=== PATIENT | female | born 1930 | race Caucasian/White ===

== ENCOUNTER → 2016-07-08 | Outpatient (CLI) | payer OTHER ==
[~2016-07-08] MED LIST: ACET-1175 PO; ALLO100T PO; ATOR10TA88 PO; AZIT250T PO; AZIT500T26 PO; BISA10SU5 PR; BUDE0.5S INH; CARB25TA12 PO; CLC100 PO; CYCL0.052 OP; DEXT40GE PO; DICL1GEL12 TOP; ERTA1INJ IV; ERYOPO OPB; ESTCR PV; FLUT0.15 NEB; FORM1NEB PO; FRRS300 PO; GABA-112 PO; GABA-113 PO; GFNSR600 PO; GLGKIT IM; HYDR5SYP11 PO; IPRASOL4 INH; LCTXP PO; LPR25 PO; MAGN400T6 PO; MEGE40SU PO; MELATAB2 PO; MOML PO; MULT-506 PO; NF406 PO; OSEL30CA PO; OXYC-57 PO; PRD10 PO; ROPI3TAB PO; SENN-65 PO; SODIENE PR; TRAM-10 PO; UMEC1INH PO; VITBC PO; XRL15 PO
[2016-07-08 09:31] LABS: ESTIMATED AVERAGE GLUCOSE 103 mg/dl; HA1C FLAG Normal (Normal)
== END ==
LOC: C.LABUPUNI 08:13
PROVIDERS: ATTEND Family Medicine
DX: E11.641 Type 2 diabetes mellitus with hypoglycemia with coma (principal)

== ENCOUNTER → 2016-07-15 | Outpatient (CLI) | payer OTHER ==
[2016-07-15 08:40] LABS: BASO % 0.2 %; BASO ABS # 0.01 K/uL (0-0.2); COMPLETE YES; EOS % 1.6 %; HEMATOCRIT 34.4 % (37-47); IG% 0.2 %; LYMPH % 21.6 %; LYMPH ABS # 0.96 K/uL (1.2-3.4); MEAN CELL VOLUME 97.5 fL (80-100); MEAN CORPUSCULAR HEMOGLOBIN 29.7 pg (25-34); MEAN CORPUSCULAR HGB CONC 30.5 g/dl (32-36); MEAN PLATELET VOLUME 11.2 fL (7.4-10.4); MONO % 8.8 %; NEUT % 67.6 %; PLATELET COUNT 183 K/uL (130-400); RED BLOOD COUNT 3.53 M/uL (4.2-5.4); WHITE BLOOD COUNT 4.45 K/uL (4.8-10.8)
[2016-07-15 08:48] LABS: BLOOD UREA NITROGEN 28 mg/dl (7-18); BUN/CREATININE RATIO 25.6 (10-20); C-REACTIVE PROTEIN 6.11 mg/dl (0-0.29); CALCIUM 8.6 mg/dl (8.5-10.1); CARBON DIOXIDE 30 mmol/L (21-32); CHLORIDE 110 mmol/L (98-107); GLUCOSE 93 mg/dl (70-99); SODIUM 149 mmol/L (136-145)
== END ==
LOC: C.LABUPUNI 08:12
PROVIDERS: ATTEND Family Medicine
DX: E11.641 Type 2 diabetes mellitus with hypoglycemia with coma (principal); L10.9 Pemphigus, unspecified

== ENCOUNTER 2016-07-17 14:05 | Inpatient (IN) | payer OTHER ==
[~2016-07-17] VITALS: Ht 165.1 cm; Wt 83.6 kg
[~2016-07-17 14:05] MED LIST changes: -AZIT250T PO; -AZIT500T26 PO; -DEXT40GE PO; -ERTA1INJ IV; -ERYOPO OPB; -ESTCR PV; -FLUT0.15 NEB; -GLGKIT IM; -HYDR5SYP11 PO; -LCTXP PO; -MEGE40SU PO; -OSEL30CA PO; -PRD10 PO; -SENN-65 PO
[2016-07-17] MEDS ORDERED: SODIUM CHLORIDE 0.9% 1000ML 1,000 ML IV SCH (14:14)
--- NOTE | 2016-07-17 14:20 | EMERGENCY ROOM VISIT NOTE ---
History Report prepared by Mata: Devi Salinas Under the Supervision of: Dr. Julio Cesar Ramirez D.O. First contact with patient: 13:57 Stated Complaint: STROKE SYMPTOMS History of Present Illness The patient is a 85 year old female who presents to the Emergency Room with complaints constant altered mental status beginning 3 hours ago. Per the [place] [facility] staff at [facility] the patient was eating breakfast 3 hours ago and when they checked on her she seemed to be having trouble breathing and was unresponsive. They report that at baseline the patient is able to care for herself, walk, and converse. Per the report, the patient had Xarelto last night but not today. EMS reports that she seems like she is unable to look to the right and is not answering questions. HPI limited secondary to AMS. Source of History: nursing staff History Limited By: AMS Onset: 3 hours ago Position: other (global) Quality: other (AMS) Timing: constant Note: Has trouble breathing, unable to look to the right, not answering questions, SOB. Review of Systems See HPI for pertinent positives & negatives. ROS limited secondary to AMS. Past Medical & Surgical Medical Problems: (1) Acute and chronic respiratory failure (2) Acute dyspnea (3) Altered mental status (4) Altered mental status (5) Anemia (6) BODY MASS INDEX 40.0-44.9, ADULT (7) C. difficile colitis (8) Change in mental status (9) Change in mental status (10) CONGESTIVE HEART FAILURE NOS (11) CORONARY ATHEROSCLEROSIS OF [place] CORONARY VESSEL (12) Cough (13) Dehydration (14) DIAB BRIGITTE WO COMPL, TYPE II OR UNSPEC TYPE, NOT UNCNTRLD (15) Dysuria (16) Fever (17) Negative history for ulcers (18) OBESITY HYPOVENTILATION SYNDROME (19) Parkinson's disease (20) Pneumonia (21) PNEUMONIA, ORGANISM NOS (22) Respiratory acidosis (23) Respiratory failure (24) Sepsis (25) Sepsis (26) Severe anemia (27) TIA (transient ischemic attack) (28) UTI (urinary tract infection) (29) UTI (urinary tract infection) Family History No pertinent family history stated. Social History Drug Use: none Marital Status: Housing Status: [place] [facility]) Occupation Status: retired Current/Historical Medications Scheduled Allopurinol (Zyloprim), 100 MG PO Q12 Atorvastatin (Lipitor), 10 MG PO HS Azithromycin (Zithromax), 250 MG PO DAILY Azithromycin (Zithromax), 500 MG PO DAILY Budesonide Soln (Pulmicort Respules 0.5MG/2ML), 2 ML INH Q12 Carbidopa/Levodopa (Sinemet 25MG/100MG), 1 TAB PO HS Cyclosporine (Ophth) (Restasis), 2 DROP OP BID Docusate Sodium (Docusate Sodium), 100 MG PO BID Erythromycin Opth (Erythromycin Opth), 1 APPLN OPB HS Estradiol Vaginal (Estrace), 0.5 APPL PV 3XWK Ferrous Sulfate (Ferrous Sulfate), 325 MG PO BIDM Fluticasone Propionate (Nasal) (Flonase Allergy Relief), 1 SPRAY NEB DAILY Gabapentin (Neurontin), 100 MG PO DAILY Gabapentin (Neurontin), 300 MG PO BID Ipratropium-Albuterol (Duoneb), 1 TREATMENT INH Q4H Magnesium Oxide (Mag-Ox), 400 MG PO TID Megestrol Acetate (Megace Oral), 400 MG PO BID Melatonin (Melatonin Maximum Strengt), 5 MG PO HS Metoprolol Tartrate (Lopressor), 12.5 MG PO DAILY Multivitamin (Multivitamin), 1 TAB PO DAILY Prednisone (Prednisone), 10 MG PO DAILY Rivaroxaban (Xarelto), 15 MG PO HS Ropinirole (Requip), 3 MG PO TID Tramadol (Ultram), 50 MG PO Q6 Umeclidinium [place] (Incruse Ellipta), 1 PUFF PO DAILY Vitamin B Complex (Vitamin B Complex), 1 TAB PO DAILY Scheduled PRN Acetaminophen (Tylenol), 650 MG PO Q4H PRN for Pain or Fever Bisacodyl (Bisacodyl), 1 SUPP WV UD PRN for Constipation Dextrose (Diabetic Use) (Insta-Glucose), 1 APPL PO UD PRN for HYPOGLYCEMIA PROTOCOL Diclofenac Sodium (Topical) (Voltaren 1% Top Gel), 1 DOSE TOP TID PRN for Pain Glucagon (Glucagon Emergency Kit), 1 APPLN IM UD PRN for HYPOGLYCEMIA PROTOCOL Guaifenesin Ext Rel (Mucinex Ext Rel), 600 MG PO Q12 PRN for COPD Hydrocodone W/ Homatropine (Hycodan 5/1.5MG 5 Ml), 5 ML PO Q4H PRN for Cough Oxycodone/Acetaminophen 5MG/325MG (Percocet 5MG/325MG), 1 TABLET PO Q12 PRN for Pain Sodium Phosphate/Biphosphate (Fleet Enema), 1 EA WV UD PRN for NO BM 4HR AFTER SUPPOSITORY Miscellaneous Medications Magnesium Hydroxide (Milk Of Magnesia), 30 ML PO Allergies Coded Allergies: Penicillins (Verified Allergy, Unknown, Unknown rxn; PATIENT HAS TOLERATED KEFLEX AND ROCEPHIN, 07/17/16) HAS TOLERATED KEFLEX AND ROCEPHIN IN PAST Lisinopril (Verified Adverse Reaction, Intermediate, HALLUCINATIONS, ) Physical Exam Vital Signs Date Time Temp Pulse Resp B/P Pulse Ox O2 Delivery O2 Flow Rate FiO2 07/17/16 15:59 192/109 07/17/16 15:55 65 93 07/17/16 15:50 65 94 07/17/16 15:45 67 94 07/17/16 15:40 67 91 07/17/16 15:35 67 89 07/17/16 15:30 68 89 07/17/16 15:25 69 91 07/17/16 15:23 171/85 07/17/16 15:20 67 90 07/17/16 15:19 67 16 171/85 91 Nasal Cannula 4.0 07/17/16 15:15 67 91 07/17/16 15:10 68 197/100 91 Nasal Cannula 4.0 07/17/16 15:05 68 90 07/17/16 15:00 67 96 07/17/16 14:55 68 99 07/17/16 14:50 67 100 07/17/16 14:45 68 100 07/17/16 14:40 69 100 07/17/16 14:38 71 26 212/80 100 Non-Rebreather 12.0 07/17/16 14:36 212/80 07/17/16 14:35 72 100 07/17/16 14:21 199/100 07/17/16 14:20 72 100 07/17/16 14:18 100 Non-Rebreather 15.0 07/17/16 14:15 73 100 07/17/16 14:14 216/83 07/17/16 14:13 37.0 74 24 167/118 97 Non-Rebreather 15.0 Physical Exam GENERAL: Patient is awake to verbal commands but appears to not be able to follow commands. She does not answer questions. She has a rebreather mask in place and appears to be having significant difficulty breathing. EYES: The conjunctivae are clear. The pupils are round and reactive. The patient appears to be unable to look to the right. EARS, NOSE, MOUTH AND THROAT: The nose is without any evidence of any deformity. Mucous membranes are moist tongue is midline NECK: The neck is nontender and supple. RESPIRATORY: Tachypnea with diminished breath sounds are noted throughout. There are Rales noted in all lung trotter. Patient appears to be having significant respiratory distress at this time. CARDIOVASCULAR: Regular rate and rhythm noted there no murmurs rubs or gallops normal S1 normal S2 GASTROINTESTINAL: The abdomen is soft. Bowel sounds are present in all quadrants. Abdomen is nontender MUSCULOSKELETAL/EXTREMITIES: There is no evidence of gross deformity full range of motion is noted in the hips and shoulders SKIN: There is no obvious evidence of any rash. Pedal edema was noted bilaterally. NEUROLOGIC: Patient is unable to answer questions. I'm unable to assess orientation at this time. The patient appears to have facial droop at rest. The patient appears to be unable to lift her left arm. It appears flaccid and drops to the bed. Patient does not appear to be able to follow commands and I'm unable to assess her lower extremity strength at this time. Patient is unable to answer questions. Medical Decision & Procedures ER Provider Diagnostic Interpretation: X ray results and stated below per my interpretation and radiology interpretation. Other radiology results per my review and radiologist interpretation: SINGLE VIEW CHEST FINDINGS: An AP, portable, upright chest radiograph is compared to study dated 06/28/2016. The examination is degraded by portable technique, patient rotation, and by the patient's head obscuring the left apex. The cardiomediastinal silhouette is unremarkable. The heart is enlarged and there is atherosclerotic calcification of the thoracic aorta. There is evidence of congestive failure and mild interstitial edema. There are low lung volumes. Small pleural effusions are identified and there is bibasilar atelectasis. No pneumothorax is seen. The skeletal structures are osteopenic. The bony thorax is grossly intact. IMPRESSION: 1. Cardiomegaly with evidence of congestive failure and mild interstitial edema. 2. Low lung volumes and small pleural effusions. Electronically signed by: Alfredo Poe M.D. 07/17/2016 2:55 PM Dictated Date/Time: 07/17/2016 2:[address] SCAN OF THE BRAIN WITHOUT IV CONTRAST FINDINGS: Brain parenchyma: There are age-related involutional changes noting moderate to advanced subcortical and periventricular microangiopathic change. There is no hemorrhage, mass effect, or evidence of acute territorial ischemia by CT criteria. Garcia-white matter is preserved. No extra-axial fluid collection is seen. Ventricles, sulci, cisterns: Prominent secondary to involutional change. Intracranial vasculature: There is atherosclerotic calcification of the cavernous carotid and vertebral arteries. Calvarium: Unremarkable. Sinuses and mastoids: There is subtotal opacification of the paranasal sinuses. Air-fluid levels are present within the maxillary antra. There are small bilateral mastoid effusions, right larger than left. Orbits: The bony orbits are grossly intact. There are bilateral ocular lens implants. IMPRESSION: 1. Senescent changes as above with no hemorrhage, mass effect, or evidence of acute territorial ischemia by CT criteria. 2. Paranasal sinus disease as above. Electronically signed by: Alfredo Poe M.D. 07/17/2016 2:36 PM Dictated Date/Time: 07/17/2016 2:34 PM Laboratory Results 07/17/16 14:25 Red Blood Count 3.69, Mean Corpuscular Volume 96.5, Mean Corpuscular Hemoglobin 29.3, Mean Corpuscular Hemoglobin Concent 30.3, Mean Platelet Volume 10.5, Neutrophils (%) (Auto) 87.1, Lymphocytes (%) (Auto) 8.4, Monocytes (%) (Auto) 3.6, Eosinophils (%) (Auto) 0.0, Basophils (%) (Auto) 0.3, Neutrophils # (Auto) 6.81, Lymphocytes # (Auto) 0.66, Monocytes # (Auto) 0.28, Eosinophils # (Auto) 0.00, Basophils # (Auto) 0.02 07/17/16 14:25 Test 07/17/16 00:00 07/17/16 14:25 07/17/16 14:27 07/17/16 15:22 Influenza Type A Antigen Neg for Influ A (NEG) Influenza Type B Antigen Neg for Influ B (NEG) White Blood Count 7.82 K/uL (4.8-10.8) Red Blood Count 3.69 M/uL (4.2-5.4) Hemoglobin 10.8 g/dL (12.0-16.0) Hematocrit 35.6 % (37-47) Mean Corpuscular Volume 96.5 fL (80-100) Mean Corpuscular Hemoglobin 29.3 pg (25-34) Mean Corpuscular Hemoglobin Concent 30.3 g/dl (32-36) Platelet Count 194 K/uL (130-400) Mean Platelet Volume 10.5 fL (7.4-10.4) Neutrophils (%) (Auto) 87.1 % Lymphocytes (%) (Auto) 8.4 % Monocytes (%) (Auto) 3.6 % Eosinophils (%) (Auto) 0.0 % Basophils (%) (Auto) 0.3 % Neutrophils # (Auto) 6.81 K/uL (1.4-6.5) Lymphocytes # (Auto) 0.66 K/uL (1.2-3.4) Monocytes # (Auto) 0.28 K/uL (0.11-0.59) Eosinophils # (Auto) 0.00 K/uL (0-0.5) Basophils # (Auto) 0.02 K/uL (0-0.2) RDW Standard Deviation 52.0 fL (36.4-46.3) RDW Coefficient of Variation 14.6 % (11.5-14.5) Immature Granulocyte % (Auto) 0.6 % Immature Granulocyte # (Auto) 0.05 K/uL (0.00-0.02) Prothrombin Time 11.1 SECONDS (9.0-12.0) Prothromb Time International Ratio 1.0 (0.9-1.1) Activated Partial Thromboplast Time 28.4 SECONDS (21.0-31.0) Partial Thromboplastin Ratio 1.1 Estimated GFR () 53.0 Estimated GFR (Non- 45.7 BUN/Creatinine Ratio 20.1 (10-20) Calcium Level 8.3 mg/dl (8.5-10.1) Total Creatine Kinase 51 U/L (26-192) Creatine Kinase MB 2.4 ng/ml (0.5-3.6) Creatine Kinase MB Ratio 4.7 (0-3.0) Troponin I < 0.015 ng/ml (0-0.045) Bedside Hemoglobin 11.2 g/dl (12.0-16.0) Bedside Hematocrit 33 % (37-47) Bedside Sodium 148 mEq/L (135-144) Bedside Potassium 4.2 mEq/L (3.3-5.0) Bedside Chloride 109 mEq/L (101-112) Bedside Total CO2 29 mEq/l (24-31) Anion Gap 15.0 mmol/L (16-25) Bedside Blood Urea Nitrogen 22 mg/dl (7-18) Bedside Creatinine 1.1 mg/dl (0.6-1.3) Bedside Glucose (other) 193 mg/dl (70-99) Bedside Ionized Calcium (Aarti) 1.19 mmol/l (1.12-1.32) Venous Blood pH 7.33 (7.36-7.41) Venous Blood Partial Pressure CO2 57 mmHg (38.0-50.0) Venous Blood Partial Pressure O2 46 mmHg Venous Blood HCO3 29 meq/L Venous Blood Oxygen Saturation 79.1 % Venous Blood Base Excess 2.1 mmol/L Pro-B-Type Natriuretic Peptide 1803 pg/ml (0-1800) Laboratory results per my review. Medications Administered Medications (Trade) Dose Ordered Sig/Jaquelin Route Start Time Stop Time Status Last Admin Dose Admin Sodium Chloride (Nss 1000ml) 1,000 ml @ 50 mls/hr Q20H IV 07/17/16 14:14 07/17/16 18:07 DC 07/17/16 15:29 50 MLS/HR Nitroglycerin (Nitroglycerin 2% Oint) 0.5 inch NOW ONCE EXT 07/17/16 15:45 07/17/16 15:46 DC 07/17/16 16:01 0.5 INCH ECG Indication: other (stroke symptoms) Rate (beats per minute): 75 Rhythm: normal sinus Findings: RBBB, no ectopy Comparison ECG Date: 06/28/16 Change: no significant change ED Course 1407: The patient was evaluated in room B1. A complete history and physical examination were performed. 1414: NSS 1,000 ml @ 50 mls/hr IV. 1446: I discussed the patient's case with Dr. Whitaker. He is going to evaluate the patient. 1513: I spoke to Dr. Whitaker. He does not recommend TPA at this time. Her condition seems to be improving and she is on Xarelto. 1531: I discussed the patient's case with Dr. Tello. The patient will be evaluated for further management. 1545: Nitroglycerin 0.5 inch EXT. 1548: Upon reevaluation, the patient is hemodynamically stable. I discussed results and treatment plan with the patient. She and her family verbalizes agreement and understanding. I spoke with Dr. Tello of the [facility]. The patient will be evaluated for further management and care. Medical Decision Differential diagnosis: Etiologies such as metabolic, infection, hypoglycemia, electrolyte abnormalities , cardiac sources, intracerebral event, toxicologic, neurologic, as well as others were entertained. Nursing notes reviewed. Additional history is obtained from the patient's daughter. Additional history is obtained from the prehospital personnel. The patient is an 85-year-old female who presented to the emergency department from the [place] [facility] for an evaluation of shortness of breath and neurologic findings. The patient was last seen well at 1130 a.m. She was given her medial and when the [place] [facility] staff went to check on her again she was having severe difficulty breathing. She appeared to be in pulmonary edema. I also received a prehospital phone call from the automotive teacher stating they were concerned about a stroke alert. The patient appeared to have facial droop as well as unilateral weakness. She was very obtunded. This could also be secondary to the patient's severe hypoxia that was reported prior to arrival. The patient was made a stroke alert after arrival when I spoke to her daughter stated that she would want TPA if it was an option. The patient last took her anticoagulant last evening at 9 p.m. and because of her age and other comorbidities she may not be a candidate for this but we had her evaluated by the [facility] tele stroke neurologist. At this time they agree that she is not a good candidate for thrombolytics. I discussed the patient's laboratory and radiographic studies with her and her family member. Her symptoms continued to improve while she was in the emergency department. I discussed her case with the on-call [facility] hospitalist group. They've agreed to evaluate the patient in the emergency department for further management and disposition. The patient was treated for her pulmonary edema with nitroglycerin paste. This seemed to improve her blood pressure as well as her other symptoms. Consults Time Called: 1440 Consulting Physician: Dr. Sherman Ramos Neurology Returned Call: 1446 I discussed the patient's case with Dr. Whitaker. He is going to evaluate the patient. Additional Consults: Time Called: 1510 Consulted Physician: Dr. Sherman Ramos Neurology Returned Call: 1513 Additional Comments: I spoke to Dr. Whitaker. He does not recommend TPA at this time. Her condition seems to be improving and she is on Xarelto. Time Called: 1530 Consulted Physician: Dr. Tello - [facility] Returned Call: 1531 Additional Comments: I discussed the patient's case with Dr. Tello. The patient will be evaluated for further management. Impression Primary Impression: CVA (cerebral vascular accident) Additional Impressions: Hypoxia Pulmonary edema Respiratory distress Critical Care I have personally spent greater than 45 minutes of critical care time in the direct management of this patient. This includes bedside care, interpretation of diagnostic studies, and testing, discussion with consultants, patient, and family members, and other required patient management activities. This 45 minutes is in excess of all separately billable procedures. Scribe Attestation The scribe's documentation has been prepared under my direction and personally reviewed by me in its entirety. I confirm that the note above accurately reflects all work, treatment, procedures, and medical decision making performed by me. Departure Information Dispostion Being Evaluated By Hospitalist Problem Qualifiers
--- NOTE | 2016-07-17 14:38 | DIAGNOSTIC IMAGING REPORT ---
CT SCAN OF THE BRAIN WITHOUT IV CONTRAST CLINICAL HISTORY: Strokelike symptoms. COMPARISON STUDY: CT the brain dated 02/02/2014. TECHNIQUE: Unenhanced axial CT scan of the brain is performed from the vertex to the skull base. The examination is modestly degraded by motion artifact. CT DOSE: 614.27 mGy.cm FINDINGS: Brain parenchyma: There are age-related involutional changes noting moderate to advanced subcortical and periventricular microangiopathic change. There is no hemorrhage, mass effect, or evidence of acute territorial ischemia by CT criteria. Garcia-white matter is preserved. No extra-axial fluid collection is seen. Ventricles, sulci, cisterns: Prominent secondary to involutional change. Intracranial vasculature: There is atherosclerotic calcification of the cavernous carotid and vertebral arteries. Calvarium: Unremarkable. Sinuses and mastoids: There is subtotal opacification of the paranasal sinuses. Air-fluid levels are present within the maxillary antra. There are small bilateral mastoid effusions, right larger than left. Orbits: The bony orbits are grossly intact. There are bilateral ocular lens implants. IMPRESSION: 1. Senescent changes as above with no hemorrhage, mass effect, or evidence of acute territorial ischemia by CT criteria. 2. Paranasal sinus disease as above. Electronically signed by: Alfredo Poe M.D. 07/17/2016 2:36 PM Dictated Date/Time: 07/17/2016 2:34 PM
[2016-07-17 14:39] LABS: BASO % 0.3 %; BASO ABS # 0.02 K/uL (0-0.2); COMPLETE YES; HEMATOCRIT 35.6 % (37-47); IG% 0.6 %; LYMPH % 8.4 %; LYMPH ABS # 0.66 K/uL (1.2-3.4); MEAN CELL VOLUME 96.5 fL (80-100); MEAN CORPUSCULAR HEMOGLOBIN 29.3 pg (25-34); MEAN CORPUSCULAR HGB CONC 30.3 g/dl (32-36); MEAN PLATELET VOLUME 10.5 fL (7.4-10.4); MONO % 3.6 %; NEUT % 87.1 %; PLATELET COUNT 194 K/uL (130-400); RED BLOOD COUNT 3.69 M/uL (4.2-5.4); WHITE BLOOD COUNT 7.82 K/uL (4.8-10.8)
[2016-07-17] MEDS ORDERED: PRD10 PO (14:39)
[2016-07-17] MEDS ORDERED: AZIT250T PO (14:39)
[2016-07-17] MEDS ORDERED: OSEL30CA PO (14:39)
[2016-07-17] MEDS ORDERED: FLUT0.15 NEB (14:39)
[2016-07-17] MEDS ORDERED: MEGE40SU PO (14:41)
[2016-07-17 14:44] LABS: ISTAT CREATININE 1.1 mg/dl (0.6-1.3); ISTAT HEMOGLOBIN 11.2 g/dl (12.0-16.0); ISTAT IONIZED CALCIUM 1.19 mmol/l (1.12-1.32)
[2016-07-17 14:48] LABS: PARTIAL THROMBOPLASTIN RATIO 1.1; PROTHROMBIN TIME (PATIENT) 11.1 SECONDS (9.0-12.0)
[2016-07-17] MEDS ORDERED: GLGKIT IM (14:50)
[2016-07-17] MEDS ORDERED: HYDR5SYP11 PO (14:51)
[2016-07-17 14:55] LABS: BLOOD UREA NITROGEN 22 mg/dl (7-18); BUN/CREATININE RATIO 20.1 (10-20); CALCIUM 8.3 mg/dl (8.5-10.1); CARBON DIOXIDE 29 mmol/L (21-32); CHLORIDE 112 mmol/L (98-107); GLUCOSE 200 mg/dl (70-99); POTASSIUM 4.2 mmol/L (3.5-5.1); SODIUM 149 mmol/L (136-145)
[2016-07-17] MEDS ORDERED: DEXT40GE PO (14:56)
[2016-07-17] MEDS ORDERED: AZIT500T26 PO (14:56)
--- NOTE | 2016-07-17 14:57 | DIAGNOSTIC IMAGING REPORT ---
SINGLE VIEW CHEST CLINICAL HISTORY: Strokelike symptoms. FINDINGS: An AP, portable, upright chest radiograph is compared to study dated 06/28/2016. The examination is degraded by portable technique, patient rotation, and by the patient's head obscuring the left apex. The cardiomediastinal silhouette is unremarkable. The heart is enlarged and there is atherosclerotic calcification of the thoracic aorta. There is evidence of congestive failure and mild interstitial edema. There are low lung volumes. Small pleural effusions are identified and there is bibasilar atelectasis. No pneumothorax is seen. The skeletal structures are osteopenic. The bony thorax is grossly intact. IMPRESSION: 1. Cardiomegaly with evidence of congestive failure and mild interstitial edema. 2. Low lung volumes and small pleural effusions. Electronically signed by: Alfredo Poe M.D. 07/17/2016 2:55 PM Dictated Date/Time: 07/17/2016 2:53 PM
[2016-07-17] MEDS ORDERED: ESTCR PV (14:59)
[2016-07-17] MEDS ORDERED: ERYOPO OPB (14:59)
[2016-07-17 15:00] LABS: CKMB/CK RATIO 4.7 (0-3.0)
[2016-07-17 15:33] LABS: VEN BLD GAS O2 SATURATION 79.1 %; VEN BLOOD GAS BASE EXCESS 2.1 mmol/L; VENOUS BLOOD GAS PCO2 57 mmHg (38.0-50.0); VENOUS BLOOD GAS PO2 46 mmHg
[2016-07-17] MEDS ORDERED: NITROGLYCERIN OINT 2% 1GM PACKET EXT ONE (15:45)
[2016-07-17] MEDS ORDERED: ONDANSETRON INJ 2 MG/ML 2 ML VIAL IV PRN (16:00)
[2016-07-17] MEDS ORDERED: ALUMINUM/MAGNESIUM/SIMETH (MAALOX MAX) 30 ML UDC PO PRN (16:00)
[2016-07-17] MEDS ORDERED: ACETAMINOPHEN 325 MG TAB PO PRN ×2 (16:00→16:15)
[2016-07-17] MEDS ORDERED: GLUCOSE 40% GEL 15 GM TUBE PO PRN (16:15)
[2016-07-17] MEDS ORDERED: GLUCOSE 10 TABS/TUBE PO PRN (16:15)
[2016-07-17] MEDS ORDERED: GUAIFENESIN 600 MG TABCR PO PRN (16:15)
[2016-07-17] MEDS ORDERED: GLUCAGON FOR INJ 1 MG VIAL SQ PRN (16:15)
[2016-07-17] MEDS ORDERED: OXYCODONE/ACETAMINOPHEN 5-325 TAB PO PRN (16:15)
[2016-07-17] MEDS ORDERED: DICLOFENAC SOD 1% GEL 100 GM TUBE EXT PRN (16:15)
[2016-07-17] MEDS ORDERED: DEXTROSE 50% 50 ML SYR IV PRN (16:15)
--- NOTE | 2016-07-17 16:26 | History and Physical ---
History & Physical Date & Time of Service: Jul 17, 2016 at 16:10 Chief Complaint: Stroke Symptoms Primary Care Physician: [facility] History of Present Illness Source: patient, family (daughter) Pt is a 85 yo female who presents to ER from [facility] with altered mental status and that started 3 hrs [employer]. Pt is a poor historian due to parkinsons but per staff, pt had difficulty breathing and became hypoxic and wasn't answering questions appropriately. They report that at baseline the patient is able to care for herself, walk, and converse. Upon arrival to ER pt was initially thought to have stroke and there was a slight facial droop noted. Stroke alert was called, and [place] was contacted. No indication for TPA as felt unlikely stroke. CT head was negative and pts alertness and orientation improved on O2. Past Medical/Surgical History Medical Problems: (1) Acute and chronic respiratory failure Status: Resolved (2) Acute dyspnea Status: Resolved (3) Altered mental status Status: Resolved (4) Altered mental status Status: Resolved (5) Anemia Status: Resolved (6) BODY MASS INDEX 40.0-44.9, ADULT Status: Chronic (7) C. 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 (12) Cough Status: Resolved (13) Dehydration Status: Resolved (14) DIAB BRIGITTE WO COMPL, TYPE II OR UNSPEC TYPE, NOT UNCNTRLD Status: Chronic (15) Dysuria Status: Resolved (16) Fever Status: Resolved (17) Negative history for ulcers Status: Chronic (18) OBESITY HYPOVENTILATION SYNDROME Status: Chronic (19) Parkinson's disease Status: Chronic (20) Pneumonia Status: Resolved (21) PNEUMONIA, ORGANISM NOS Status: Resolved (22) Respiratory acidosis Status: Resolved (23) Respiratory failure Status: Resolved (24) Sepsis Status: Resolved (25) Sepsis Status: Resolved (26) Severe anemia Status: Resolved (27) TIA (transient ischemic attack) Status: Resolved (28) UTI (urinary tract infection) Status: Resolved (29) UTI (urinary tract infection) Status: Resolved Family History Cancer Social History Smoking Status: Unknown if Ever Smoked Drug Use: none Marital Status: Housing status: assisted living Occupational Status: retired Immunizations History of Influenza Vaccine: Yes Influenza Vaccine Date: Apr 09, 2013 History of Tetanus Vaccine?: No History of Pneumococcal: Yes Pneumococcal Date: May 06, 2010 History of Hepatitis B Vaccine: No Multi-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 Allergies Coded Allergies: Penicillins (Verified Allergy, Unknown, Unknown rxn; PATIENT HAS TOLERATED KEFLEX AND ROCEPHIN, 07/17/16) HAS TOLERATED KEFLEX AND ROCEPHIN IN PAST Lisinopril (Verified Adverse Reaction, Intermediate, HALLUCINATIONS, ) Home Medications Scheduled Allopurinol (Zyloprim), 100 MG PO Q12 Atorvastatin (Lipitor), 10 MG PO HS Azithromycin (Zithromax), 250 MG PO DAILY Azithromycin (Zithromax), 500 MG PO DAILY Budesonide Soln (Pulmicort Respules 0.5MG/2ML), 2 ML INH Q12 Carbidopa/Levodopa (Sinemet 25MG/100MG), 1 TAB PO HS Cyclosporine (Ophth) (Restasis), 2 DROP OP BID Docusate Sodium (Docusate Sodium), 100 MG PO BID Erythromycin Opth (Erythromycin Opth), 1 APPLN OPB HS Estradiol Vaginal (Estrace), 0.5 APPL PV [id number] Ferrous Sulfate (Ferrous Sulfate), 325 MG PO BIDM Fluticasone Propionate (Nasal) (Flonase Allergy Relief), 1 SPRAY NEB DAILY Gabapentin (Neurontin), 100 MG PO DAILY Gabapentin (Neurontin), 300 MG PO BID Ipratropium-Albuterol (Duoneb), 1 TREATMENT INH Q4H Magnesium Oxide (Mag-Ox), 400 MG PO TID Megestrol Acetate (Megace Oral), 400 MG PO BID Melatonin (Melatonin Maximum Strengt), 5 MG PO HS Metoprolol Tartrate (Lopressor), 12.5 MG PO DAILY Multivitamin (Multivitamin), 1 TAB PO DAILY Prednisone (Prednisone), 10 MG PO DAILY Rivaroxaban (Xarelto), 15 MG PO HS Ropinirole (Requip), 3 MG PO TID Tramadol (Ultram), 50 MG PO Q6 Umeclidinium [place] (Incruse Ellipta), 1 PUFF PO DAILY Vitamin B Complex (Vitamin B Complex), 1 TAB PO DAILY Scheduled PRN Acetaminophen (Tylenol), 650 MG PO Q4H PRN for Pain or Fever Bisacodyl (Bisacodyl), 1 SUPP IA UD PRN for Constipation Dextrose (Diabetic Use) (Insta-Glucose), 1 APPL PO UD PRN for HYPOGLYCEMIA PROTOCOL Diclofenac Sodium (Topical) (Voltaren 1% Top Gel), 1 DOSE TOP TID PRN for Pain Glucagon (Glucagon Emergency Kit), 1 APPLN IM UD PRN for HYPOGLYCEMIA PROTOCOL Guaifenesin Ext Rel (Mucinex Ext Rel), 600 MG PO Q12 PRN for COPD Hydrocodone W/ Homatropine (Hycodan 5/1.5MG 5 Ml), 5 ML PO Q4H PRN for Cough Oxycodone/Acetaminophen 5MG/325MG (Percocet 5MG/325MG), 1 TABLET PO Q12 PRN for Pain Sodium Phosphate/Biphosphate (Fleet Enema), 1 EA IA UD PRN for NO BM 4HR AFTER SUPPOSITORY Miscellaneous Medications Magnesium Hydroxide (Milk Of Magnesia), 30 ML PO Review of Systems Constitutional: No chills, No fever Respiratory: + cough, + shortness of breath, + sputum, + wheezing Cardiovascular: No chest pain, No claudication, No edema, No orthopnea Abdomen: No constipation, No diarrhea, No nausea, No pain, No vomiting Musculoskeletal: No joint pain, No muscle pain Genitourinary - Female: No dysuria, No urinary frequency, No urinary urgency Neurologic: No numbness/tingling, No paralysis, No weakness Psychiatric: No anhedonism, No anxiety, No depression symptoms Endocrine: No excessive thirst, No fatigue Integumentary: No rash Allergic / Immunologic: No environmental allergies, No seasonal allergies Physical Exam Vital Signs Date Time Temp Pulse Resp B/P Pulse Ox O2 Delivery O2 Flow Rate FiO2 07/17/16 15:19 67 16 171/85 91 Nasal Cannula 4.0 07/17/16 15:10 68 197/100 91 Nasal Cannula 4.0 07/17/16 15:05 68 90 07/17/16 15:00 67 96 07/17/16 14:55 68 99 07/17/16 14:50 67 100 07/17/16 14:45 68 100 07/17/16 14:40 69 100 07/17/16 14:38 71 26 212/80 100 Non-Rebreather 12.0 07/17/16 14:36 212/80 07/17/16 14:35 72 100 07/17/16 14:21 199/100 07/17/16 14:20 72 100 07/17/16 14:18 100 Non-Rebreather 15.0 07/17/16 14:15 73 100 07/17/16 14:14 216/83 07/17/16 14:13 37.0 74 24 167/118 97 Non-Rebreather 15.0 General Appearance: WD/WN, no apparent distress Head: normocephalic, atraumatic Eyes: normal inspection, PERRL Neck: supple, no adenopathy Respiratory/Chest: chest non-tender, + crackles Cardiovascular: no JVD, no murmur Abdomen/GI: non tender, soft Extremities/Musculoskelatal: normal range of motion Neurologic/Psych: alert, oriented x 3 Diagnostics Laboratory Results Results Past 24 Hours Test 07/17/16 14:14 07/17/16 14:15 07/17/16 14:25 07/17/16 14:27 Range/Units Bedside Glucose 178 70-90 mg/dl White Blood Count 7.82 4.8-10.8 K/uL Red Blood Count 3.69 4.2-5.4 M/uL Hemoglobin 10.8 12.0-16.0 g/dL Hematocrit 35.6 37-47 % Mean Corpuscular Volume 96.5 80-100 fL Mean Corpuscular Hemoglobin 29.3 25-34 pg Mean Corpuscular Hemoglobin Concent 30.3 32-36 g/dl Platelet Count 194 130-400 K/uL Mean Platelet Volume 10.5 7.4-10.4 fL Neutrophils (%) (Auto) 87.1 % Lymphocytes (%) (Auto) 8.4 % Monocytes (%) (Auto) 3.6 % Eosinophils (%) (Auto) 0.0 % Basophils (%) (Auto) 0.3 % Neutrophils # (Auto) 6.81 1.4-6.5 K/uL Lymphocytes # (Auto) 0.66 1.2-3.4 K/uL Monocytes # (Auto) 0.28 0.11-0.59 K/uL Eosinophils # (Auto) 0.00 0-0.5 K/uL Basophils # (Auto) 0.02 0-0.2 K/uL RDW Standard Deviation 52.0 36.4-46.3 fL RDW Coefficient of Variation 14.6 11.5-14.5 % Immature Granulocyte % (Auto) 0.6 % Immature Granulocyte # (Auto) 0.05 0.00-0.02 K/uL Prothrombin Time 11.1 9.0-12.0 SECONDS Prothromb Time International Ratio 1.0 0.9-1.1 Activated Partial Thromboplast Time 28.4 21.0-31.0 SECONDS Partial Thromboplastin Ratio 1.1 Sodium Level 149 136-145 mmol/L Potassium Level 4.2 3.5-5.1 mmol/L Chloride Level 112 98-107 mmol/L Carbon Dioxide Level 29 21-32 mmol/L Anion Gap 8.0 15.0 16-25 mmol/L Blood Urea Nitrogen 22 7-18 mg/dl Creatinine 1.10 0.60-1.20 mg/dl Estimated GFR () 53.0 Estimated GFR (Non- 45.7 BUN/Creatinine Ratio 20.1 10-20 Random Glucose 200 70-99 mg/dl Calcium Level 8.3 8.5-10.1 mg/dl Total Creatine Kinase 51 26-192 U/L Creatine Kinase MB 2.4 0.5-3.6 ng/ml Creatine Kinase MB Ratio 4.7 0-3.0 Troponin I < 0.015 0-0.045 ng/ml Pro-B-Type Natriuretic Peptide 1761 0-1800 pg/ml Bedside Hemoglobin 11.2 12.0-16.0 g/dl Bedside Hematocrit 33 37-47 % Bedside Sodium 148 135-144 mEq/L Bedside Potassium 4.2 3.3-5.0 mEq/L Bedside Chloride 109 101-112 mEq/L Bedside Total CO2 29 24-31 mEq/l Bedside Blood Urea Nitrogen 22 7-18 mg/dl Bedside Creatinine 1.1 0.6-1.3 mg/dl Bedside Glucose (other) 193 70-99 mg/dl Bedside Ionized Calcium (Aarti) 1.19 1.12-1.32 mmol/l Test 07/17/16 15:22 Range/Units Venous Blood pH 7.33 7.36-7.41 Venous Blood Partial Pressure CO2 57 38.0-50.0 mmHg Venous Blood Partial Pressure O2 46 mmHg Venous Blood HCO3 29 meq/L Venous Blood Oxygen Saturation 79.1 % Venous Blood Base Excess 2.1 mmol/L Pro-B-Type Natriuretic Peptide 1803 0-1800 pg/ml Microbiology Results 07/17/16 Urine Culture, Luis Miguel Batch Pending Impression Assessment and Plan Pt is a 85 yo female who presents from the [facility] with shortness of breath, altered mental status Shortness of breath - likely secondary to pleural effusion and acute on chronic diastolic CHF exacerbation. Will start on lasix 40 mg IV daily and check daily weight and I/Os. CXR 07/17/15 only noted bilateral pleural effusions with no consolidations. Will admit to tele and continue on oxygen as well as duoneb treatments. BNP elev at 1803. Trend trops and repeat EKG in AM. Obtain ECHO. Encephalopathy - likely secondary to above vs hypertensive in etiology. Will cont lopressor and start on hydralazine as well. Mentation already improving on examination Hx of atrial fibrillation - currently in sinus, cont xarelto Iron deficiency anemia - At baseline, cont iron supp Chronic kidney disease stage 3 - Creatinine at baseline. Will continue to monitor with daily PRPs. Obesity hypoventilation syndrome - Will continue outpatient regimen, nebulizer treatment, and oxygen. Type 2 diabetes - Cont on diabetic diet and ISS. Will check HgA1c DVT ppx with xarelto FULL CODE VTE Prophylaxis VTE Risk Assessment Done? Y/N: Yes Risk Level: Moderate
[2016-07-17] MEDS ORDERED: FUROSEMIDE INJ 40 MG in SYRINGE 0 ML IV STA (16:44)
[2016-07-17 16:47] VITALS: Ht 165.1 cm; Wt 83.6 kg
[2016-07-17] MEDS ORDERED: FUROSEMIDE 40 MG/4 ML VIAL ONE (16:55)
[2016-07-17 18:06] VITALS: BP 193/47
[2016-07-17] MEDS: HydrALAZINE HCL 20 MG/ML VIAL IV. PRN ×2 (18:13→23:39)
[2016-07-17 18:56] VITALS: BP 188/64; PULSE 148; PULSE 70; TEMP 36.8; O2SAT 93
[2016-07-17] MEDS: ALBUT/IPRATROP 3MG/0.5MG NEB 3 ML VIAL INH SCH (19:18)
[2016-07-17] MEDS: BUDESONIDE 0.5 MG/2 ML VIAL (PULMICORT) INH SCH (19:18)
[2016-07-17 19:19] VITALS: PULSE 68; O2SAT 92
[2016-07-17] MEDS: TRAMADOL HCL 50 MG TAB PO SCH ×2 (19:44→23:38)
[2016-07-17] MEDS: RIVAROXABAN TAB 15 MG TAB PO SCH (19:45)
[2016-07-17] MEDS: DOCUSATE SODIUM 100 MG CAP PO SCH (19:46)
[2016-07-17] MEDS: FERROUS SULFATE 325 MG TAB PO SCH (19:47)
[2016-07-17] MEDS: ERYTHROMYCIN OP OINT 5 MG/GM 3.5 GM TUBE OPB SCH (19:47)
[2016-07-17] MEDS: MAGNESIUM OXIDE 400 MG TAB PO SCH (19:48)
[2016-07-17] MEDS: ATORVASTATIN 10 MG TAB PO SCH (19:48)
[2016-07-17] MEDS: MEGESTROL ACETATE 400 MG/10 ML UDP PO SCH (19:48)
[2016-07-17] MEDS: ROPINIROLE HCL 1 MG TAB PO SCH (19:49)
[2016-07-17] MEDS: ALLOPURINOL 100 MG TAB PO SCH (19:50)
[2016-07-17] MEDS: CARBIDOPA/LEVODOPA 25/100MG TAB PO SCH (19:50)
[2016-07-17 20:18] LABS: URINE APPEARANCE CLEAR (CLEAR); URINE BILIRUBIN NEG (NEG); URINE COLOR YELLOW; URINE EPITHELIAL CELL AUTO 20-30 /lpf (0-5); URINE NITRITE NEG (NEG); URINE PH 5.5 (4.5-7.5); URINE SPECIFIC GRAVITY 1.014 (1.000-1.030); UROBILINOGEN NEG (NEG)
[2016-07-17 20:19] LABS: MANUAL MICROSCOPIC REQUIRED? NO; REVIEW REQ? NO
[2016-07-17] MEDS ORDERED: CYCLOSPORINE OP SCH (21:00)
[2016-07-17] MEDS: INSULIN ASPART 100 UNITS/ML 3 ML PEN SC SCH (21:00)
[2016-07-17] MEDS: GABAPENTIN 300 MG CAP PO SCH (22:27)
[2016-07-17] MEDS ORDERED: NURSING VERBAL MED ORDER ONE (23:30)
[2016-07-17] MEDS: RESTASIS-ORDER AWAITING ACTION SCH (23:46)
[2016-07-18] VITALS (11 sets, daily range): BP systolic 100–172; BP diastolic 51–86; PULSE 54–118; TEMP 36.5–37.1; O2SAT 96–100
[2016-07-18] MEDS: HYDROCODONE/HOMATROPINE SYRUP 5MG/1.5MG 5ML UDP PO PRN ×2 (00:21→05:48)
[2016-07-18] MEDS: NITROGLYCERIN OINT 2% 1GM PACKET EXT SCH ×4 (00:22→18:30)
[2016-07-18] MEDS: HydrALAZINE HCL 20 MG/ML VIAL IV. PRN (04:16)
[2016-07-18] MEDS: TRAMADOL HCL 50 MG TAB PO SCH ×3 (05:42→18:30)
[2016-07-18 06:24] LABS: BASO % 0.2 %; BASO ABS # 0.01 K/uL (0-0.2); COMPLETE YES; HEMATOCRIT 34.2 % (37-47); LYMPH % 27.1 %; LYMPH ABS # 1.58 K/uL (1.2-3.4); MEAN CELL VOLUME 94.5 fL (80-100); MEAN CORPUSCULAR HEMOGLOBIN 29.3 pg (25-34); MEAN PLATELET VOLUME 10.4 fL (7.4-10.4); MONO % 5.2 %; NEUT % 66.5 %; PLATELET COUNT 209 K/uL (130-400); RED BLOOD COUNT 3.62 M/uL (4.2-5.4); WHITE BLOOD COUNT 5.82 K/uL (4.8-10.8)
[2016-07-18 06:45] LABS: BUN/CREATININE RATIO 26.3 (10-20); CALCIUM 8.6 mg/dl (8.5-10.1); CREATININE 0.97 mg/dl (0.60-1.20)
[2016-07-18] MEDS: ALBUT/IPRATROP 3MG/0.5MG NEB 3 ML VIAL INH SCH ×4 (07:12→19:35)
[2016-07-18] MEDS: BUDESONIDE 0.5 MG/2 ML VIAL (PULMICORT) INH SCH ×2 (07:13→19:35)
[2016-07-18 07:38] LABS: ESTIMATED AVERAGE GLUCOSE 108 mg/dl; HA1C FLAG Normal (Normal)
[2016-07-18] MEDS: AZITHROMYCIN 250 MG TAB PO SCH (07:58)
[2016-07-18] MEDS: GABAPENTIN 300 MG CAP PO SCH ×2 (07:59→19:43)
[2016-07-18] MEDS: VITAMIN B COMPLEX TAB PO SCH (07:59)
[2016-07-18] MEDS: MULTIVITAMIN TAB PO SCH (08:00)
[2016-07-18] MEDS: MAGNESIUM OXIDE 400 MG TAB PO SCH ×3 (08:00→19:42)
[2016-07-18] MEDS: ROPINIROLE HCL 1 MG TAB PO SCH ×3 (08:01→19:43)
[2016-07-18] MEDS: FERROUS SULFATE 325 MG TAB PO SCH ×2 (08:02→18:33)
[2016-07-18] MEDS: METOPROLOL TARTRATE 25 MG TAB PO SCH (08:02)
[2016-07-18] MEDS: DOCUSATE SODIUM 100 MG CAP PO SCH ×2 (08:02→19:40)
[2016-07-18] MEDS: MEGESTROL ACETATE 400 MG/10 ML UDP PO SCH ×2 (08:03→19:43)
[2016-07-18] MEDS: FLUTICASONE PROPIONATE NA SPR 16 GM BTL SCH (08:03)
[2016-07-18] MEDS: ALLOPURINOL 100 MG TAB PO SCH ×2 (08:04→19:42)
[2016-07-18] MEDS: INSULIN ASPART 100 UNITS/ML 3 ML PEN SC SCH ×4 (08:16→20:54)
--- NOTE | 2016-07-18 09:05 | Clinical Documentation Query ---
. SURY FRANCIS : CLINICAL DOCUMENTATION QUERIES QUERY 1 OF 2 Documentation includes BMI 40-44.9. EMR BMI is 31.3 kg/m*m based on patient height of 165.1 cm and admission weight of 85.3 Kg. At no point in our EMR did patient have a body weight that would satisfy the documented BMI. Please clarify/amend as clinically appropriate. Thank you. In your clinical opinion is this patient being managed for: (x ) Body mass index (BMI) 31.0-31.9 ( ) Other explanation of clinical findings (Please Explain) ( ) Unable to determine (Please Define) ( ) Need to Discuss ( ) Not Agree The medical record reflects the following clinical findings, treatment, and risk factors. Clinical Indicators: As above Treatment: n/a Risk Factors: caloric intake > caloric expenditure QUERY 2 OF 2 Patient is an 85 year old female who presented with an altered mental status and difficulty breathing. Respiratory rate to 26 breaths/minute in ED with requirement of a 15L/min NRB to maintain SpO2 wnl. She was noted by ED provider to be tachypnic with "significant respiratory distress". She was started on IV Lasix, daily weights, I/O, nebs, will be maintained on supplemental oxygen, and with be monitored/evaluated with serial labs, telemetry, EKG, and echocardiogram. In your clinical opinion is this patient being managed for: ( x ) Acute hypoxemic respiratory failure ( ) Other explanation of clinical findings (Please Explain) ( ) Unable to determine (Please Define) ( ) Need to Discuss ( ) Not Agree The medical record reflects the following clinical findings, treatment, and risk factors. Clinical Indicators: As above Treatment:She was started on IV Lasix, daily weights, I/O, nebs, will be maintained on supplemental oxygen, and with be monitored/evaluated with serial labs, telemetry, EKG, and echocardiogram Risk Factors: Age, pulmonary edema secondary to acute on chronic diastolic CHF Please clarify and document your clinical opinion in the progress notes and discharge summary. Terms such as "probable", "suspected", "likely", "questionable", "possible", or "still to be ruled out" are acceptable. IF IN AGREEMENT, YOU MUST DOCUMENT ABOVE DIAGNOSTIC STATEMENT IN DAILY PROGRESS NOTES AND DISCHARGE SUMMARY. This document is not part of the patient's record. Thank You, Franklyn Ahn, RN [phone]
[2016-07-18] MEDS: FUROSEMIDE INJ 40 MG in SYRINGE 0 ML IV SCH (09:25)
--- NOTE | 2016-07-18 12:14 | Progress Note ---
Subjective Date of Service: Jul 18, 2016. Subjective Pt evaluation today including: conversation w/ patient, chart review, lab review, review of studies Problem List Medical Problems: (1) CVA (cerebral vascular accident) Status: Acute (2) Hypoxia Status: Acute (3) Pulmonary edema Status: Acute (4) Respiratory distress Status: Acute (5) Viral syndrome Status: Acute Review of Systems unobtainable due to change in mental status Medications Current Inpatient Medications Medications (Trade) Dose Ordered Sig/Jaquelin Route Start Time Stop Time Status Last Admin Dose Admin Acetaminophen (Tylenol Tab) 650 mg Q4H PRN PO 07/17/16 16:00 08/16/16 15:59 Al Hydrox/Mg Hydrox/Simethicone (Maalox Max Susp) 15 ml Q4H PRN PO 07/17/16 16:00 08/16/16 15:59 Ondansetron HCl (Zofran Inj) 4 mg Q6H PRN IV 07/17/16 16:00 08/16/16 15:59 Allopurinol (Zyloprim Tab) 100 mg Q12 PO 07/17/16 21:00 08/16/16 20:59 07/18/16 08:04 100 MG Atorvastatin Calcium (Lipitor Tab) 10 mg HS PO 07/17/16 21:00 08/16/16 20:59 07/17/16 19:48 10 MG Budesonide (Pulmicort Respules 0.5MG/ 2ML Neb Soln) 0.5 mg Q12 INH 07/17/16 21:00 08/16/16 20:59 07/18/16 07:13 0.5 MG Carbidopa/Levodopa (Sinemet 25/ 100MG Tab) 1 tab HS PO 07/17/16 21:00 08/16/16 20:59 07/17/16 19:50 1 TAB Diclofenac Sodium (Voltaren 1% Top Gel) 1 appln TID PRN EXT 07/17/16 16:15 08/16/16 16:14 Docusate Sodium (coLACE CAP) 100 mg BID PO 07/17/16 21:00 08/16/16 20:59 07/18/16 08:02 100 MG Erythromycin (Erythromycin Oph Oint) 1 appln HS OPB 07/17/16 21:00 07/27/16 20:59 07/17/16 19:47 1 APPLN Ferrous Sulfate (Feosol Tab) 325 mg BIDM PO 07/17/16 17:53 08/16/16 17:59 07/18/16 08:02 325 MG Fluticasone Propionate (Flonase Nasal [place]) 1 sprays DAILY NA 07/18/16 09:00 08/17/16 08:59 07/18/16 08:03 1 SPRAYS Gabapentin (Neurontin Cap) 100 mg DAILY@1200 PO 07/18/16 12:00 08/17/16 11:59 Gabapentin (Neurontin Cap) 300 mg BID PO 07/17/16 21:00 08/16/16 20:59 07/18/16 07:59 300 MG Guaifenesin (Mucinex Contr Rel Tab) 600 mg Q12 PRN PO 07/17/16 16:15 08/16/16 16:14 07/18/16 08:00 600 MG Hydrocodone Bit/ Homatropine Methylb (Hycodan Syrup) 5 ml Q4H PRN PO 07/17/16 16:15 07/31/16 16:14 07/18/16 05:48 5 ML Magnesium Oxide (Mag-Ox Tab) 400 mg TID PO 07/17/16 21:00 08/16/16 20:59 07/18/16 08:00 400 MG Megestrol Acetate (Megace Susp) 400 mg BID PO 07/17/16 21:00 08/16/16 20:59 07/18/16 08:03 400 MG Metoprolol Tartrate (Lopressor Tab) 12.5 mg DAILY PO 07/18/16 09:00 08/17/16 08:59 07/18/16 08:02 12.5 MG Multivitamins (Multivitamin Tab) 1 tab DAILY PO 07/18/16 09:00 08/17/16 08:59 07/18/16 08:00 1 TAB Oxycodone/ Acetaminophen (Percocet 5-325MG Tab) 1 tab Q12 PRN PO 07/17/16 16:15 07/31/16 16:14 Prednisone (PredniSONE TAB) 10 mg DAILY PO 07/18/16 09:00 08/17/16 08:59 07/18/16 08:02 10 MG Rivaroxaban (Xarelto Tab) 15 mg QDD PO 07/17/16 16:45 08/16/16 16:44 07/17/16 19:45 15 MG Ropinirole HCl (Requip Tab) 3 mg TID PO 07/17/16 21:00 08/16/16 20:59 07/18/16 08:01 3 MG Tramadol HCl (Ultram Tab) 50 mg Q6 PO 07/17/16 18:00 08/16/16 17:59 07/18/16 05:42 50 MG Vitamin B Complex (Vitamin B Complex) 1 tab DAILY PO 07/18/16 09:00 08/17/16 08:59 07/18/16 07:59 1 TAB Hydralazine HCl (HydrALAZINE INJ) 10 mg Q4 PRN IV. 07/17/16 16:15 08/16/16 16:14 07/18/16 04:16 10 MG Insulin Aspart (novoLOG ASPART) SLIDING SCALE If C... ACHS SC 07/17/16 21:00 08/16/16 20:59 07/18/16 08:16 3 UNITS Glucose (Glucose 40% Gel) 15-30 GRAMS 15 GRAMS... UD PRN PO 07/17/16 16:15 08/16/16 16:14 Glucose (Glucose Chew Tab) 4-8 Tablets 4 Tabl... UD PRN PO 07/17/16 16:15 08/16/16 16:14 Dextrose (Dextrose 50% 50ML Syringe) 25-50ML OF 50% DW IV FOR... UD PRN IV 07/17/16 16:15 08/16/16 16:14 Glucagon 1 mg 1 mg UD PRN SQ 07/17/16 16:15 08/16/16 16:14 Furosemide/Syringe (Lasix Inj/ Syringe) 4 ml @ 4 mls/min DAILY IV 07/18/16 09:00 08/17/16 08:59 07/18/16 09:25 4 MLS/MIN Albuterol/ Ipratropium (Duoneb) 3 ml QIDR INH 07/17/16 20:00 08/16/16 19:59 07/18/16 11:13 3 ML Azithromycin (Zithromax Tab) 250 mg QAM PO 07/18/16 09:00 07/23/16 08:59 07/18/16 07:58 250 MG Miscellaneous Information (Order Awaiting Action) 1 ea QS N/A 07/18/16 00:00 08/17/16 00:00 Nitroglycerin (Nitroglycerin 2% Oint) 1 inch Q6 EXT 07/18/16 00:00 08/17/16 00:00 07/18/16 05:48 1 INCH Objective Vital Signs Date Time Temp Pulse Resp B/P Pulse Ox O2 Delivery O2 Flow Rate FiO2 07/18/16 11:12 60 20 97 Nasal Cannula 3.0 07/18/16 07:45 36.7 118 26 115/67 97 Nasal Cannula 2.0 07/18/16 07:15 70 20 98 Nasal Cannula 4.0 07/18/16 04:45 100/57 07/18/16 04:11 36.5 62 23 172/55 100 Nasal Cannula 4.0 07/18/16 04:00 Nasal Cannula 4.0 07/18/16 00:08 36.6 69 28 130/86 96 Nasal Cannula 4.0 07/17/16 23:59 Nasal Cannula 4.0 07/17/16 20:00 Nasal Cannula 4.0 07/17/16 19:19 68 20 92 Nasal Cannula 4.0 07/17/16 18:56 36.8 70 22 188/64 93 Nasal Cannula 4.0 07/17/16 18:06 193/47 07/17/16 17:09 37.0 62 20 214/104 96 07/17/16 17:00 62 20 214/104 96 Nasal Cannula 4.0 07/17/16 16:52 63 192/109 96 Nasal Cannula 2.0 07/17/16 16:50 66 96 07/17/16 16:47 Nasal Cannula 4.0 07/17/16 16:45 62 96 07/17/16 16:40 63 97 07/17/16 16:35 65 96 07/17/16 16:30 66 95 07/17/16 16:25 66 94 07/17/16 16:20 66 95 07/17/16 16:15 69 94 07/17/16 16:10 66 93 07/17/16 16:05 65 94 07/17/16 16:00 65 93 07/17/16 15:59 192/109 07/17/16 15:55 65 93 07/17/16 15:50 65 94 07/17/16 15:45 67 94 07/17/16 15:40 67 91 07/17/16 15:35 67 89 07/17/16 15:30 68 89 07/17/16 15:25 69 91 07/17/16 15:23 171/85 07/17/16 15:20 67 90 07/17/16 15:19 67 16 171/85 91 Nasal Cannula 4.0 07/17/16 15:15 67 91 07/17/16 15:10 68 197/100 91 Nasal Cannula 4.0 07/17/16 15:05 68 90 07/17/16 15:00 67 96 07/17/16 14:55 68 99 07/17/16 14:50 67 100 07/17/16 14:45 68 100 07/17/16 14:40 69 100 07/17/16 14:38 71 26 212/80 100 Non-Rebreather 12.0 07/17/16 14:36 212/80 07/17/16 14:35 72 100 07/17/16 14:21 199/100 07/17/16 14:20 72 100 07/17/16 14:18 100 Non-Rebreather 15.0 07/17/16 14:15 73 100 07/17/16 14:14 216/83 07/17/16 14:13 37.0 74 24 167/118 97 Non-Rebreather 15.0 Physical Exam General Appearance: + mild distress Eyes: normal inspection, PERRL, EOMI ENT: normal ENT inspection, hearing grossly normal Neck: supple Respiratory/Chest: chest non-tender, + decreased breath sounds, + crackles, + rales, + rhonchi Cardiovascular: regular rate, rhythm, no edema, + gallop/S3 Abdomen: non tender, soft, no organomegaly Extremities: normal range of motion, non-tender Neurologic/Psychiatric: tower watchman II-XII nml as tested, + disoriented Skin: normal color, warm/dry Laboratory Results Last 24 Hours Test 07/17/16 14:15 07/17/16 14:25 07/17/16 14:27 07/17/16 15:22 Bedside Glucose 178 mg/dl White Blood Count 7.82 K/uL Red Blood Count 3.69 M/uL Hemoglobin 10.8 g/dL Hematocrit 35.6 % Mean Corpuscular Volume 96.5 fL Mean Corpuscular Hemoglobin 29.3 pg Mean Corpuscular Hemoglobin Concent 30.3 g/dl Platelet Count 194 K/uL Mean Platelet Volume 10.5 fL Neutrophils (%) (Auto) 87.1 % Lymphocytes (%) (Auto) 8.4 % Monocytes (%) (Auto) 3.6 % Eosinophils (%) (Auto) 0.0 % Basophils (%) (Auto) 0.3 % Neutrophils # (Auto) 6.81 K/uL Lymphocytes # (Auto) 0.66 K/uL Monocytes # (Auto) 0.28 K/uL Eosinophils # (Auto) 0.00 K/uL Basophils # (Auto) 0.02 K/uL RDW Standard Deviation 52.0 fL RDW Coefficient of Variation 14.6 % Immature Granulocyte % (Auto) 0.6 % Immature Granulocyte # (Auto) 0.05 K/uL Prothrombin Time 11.1 SECONDS Prothromb Time International Ratio 1.0 Activated Partial Thromboplast Time 28.4 SECONDS Partial Thromboplastin Ratio 1.1 Sodium Level 149 mmol/L Potassium Level 4.2 mmol/L Chloride Level 112 mmol/L Carbon Dioxide Level 29 mmol/L Anion Gap 8.0 mmol/L 15.0 mmol/L Blood Urea Nitrogen 22 mg/dl Creatinine 1.10 mg/dl Estimated GFR () 53.0 Estimated GFR (Non- 45.7 BUN/Creatinine Ratio 20.1 Random Glucose 200 mg/dl Calcium Level 8.3 mg/dl Total Creatine Kinase 51 U/L Creatine Kinase MB 2.4 ng/ml Creatine Kinase MB Ratio 4.7 Troponin I < 0.015 ng/ml Pro-B-Type Natriuretic Peptide 1761 pg/ml 1803 pg/ml Bedside Hemoglobin 11.2 g/dl Bedside Hematocrit 33 % Bedside Sodium 148 mEq/L Bedside Potassium 4.2 mEq/L Bedside Chloride 109 mEq/L Bedside Total CO2 29 mEq/l Bedside Blood Urea Nitrogen 22 mg/dl Bedside Creatinine 1.1 mg/dl Bedside Glucose (other) 193 mg/dl Bedside Ionized Calcium (Aarti) 1.19 mmol/l Venous Blood pH 7.33 Venous Blood Partial Pressure CO2 57 mmHg Venous Blood Partial Pressure O2 46 mmHg Venous Blood HCO3 29 meq/L Venous Blood Oxygen Saturation 79.1 % Venous Blood Base Excess 2.1 mmol/L Test 07/17/16 19:59 07/17/16 20:04 07/17/16 22:07 07/18/16 05:37 Bedside Glucose 135 mg/dl Urine Color YELLOW Urine Appearance CLEAR Urine pH 5.5 Urine Specific [place] 1.014 Urine Protein TRACE Urine Glucose (UA) NEG Urine Ketones NEG Urine Occult Blood NEG Urine Nitrite NEG Urine Bilirubin NEG Urine Urobilinogen NEG Urine Leukocyte Esterase TRACE Urine WBC (Auto) 10-30 /hpf Urine RBC (Auto) 5-10 /hpf Urine Hyaline Casts (Auto) 1-5 /lpf Urine Epithelial Cells (Auto) 20-30 /lpf Urine Bacteria (Auto) NEG Troponin I 0.057 ng/ml 0.035 ng/ml White Blood Count 5.82 K/uL Red Blood Count 3.62 M/uL Hemoglobin 10.6 g/dL Hematocrit 34.2 % Mean Corpuscular Volume 94.5 fL Mean Corpuscular Hemoglobin 29.3 pg Mean Corpuscular Hemoglobin Concent 31.0 g/dl Platelet Count 209 K/uL Mean Platelet Volume 10.4 fL Neutrophils (%) (Auto) 66.5 % Lymphocytes (%) (Auto) 27.1 % Monocytes (%) (Auto) 5.2 % Eosinophils (%) (Auto) 0.0 % Basophils (%) (Auto) 0.2 % Neutrophils # (Auto) 3.87 K/uL Lymphocytes # (Auto) 1.58 K/uL Monocytes # (Auto) 0.30 K/uL Eosinophils # (Auto) 0.00 K/uL Basophils # (Auto) 0.01 K/uL RDW Standard Deviation 49.9 fL RDW Coefficient of Variation 14.5 % Immature Granulocyte % (Auto) 1.0 % Immature Granulocyte # (Auto) 0.06 K/uL Sodium Level 146 mmol/L Potassium Level 4.0 mmol/L Chloride Level 110 mmol/L Carbon Dioxide Level 28 mmol/L Anion Gap 8.0 mmol/L Blood Urea Nitrogen 25 mg/dl Creatinine 0.97 mg/dl Est Creatinine Clear Calc Drug Dose 47.1 ml/min Estimated GFR () 61.7 Estimated GFR (Non- 53.3 BUN/Creatinine Ratio 26.3 Random Glucose 92 mg/dl Estimated Average Glucose 108 mg/dl Hemoglobin A1c 5.4 % Calcium Level 8.6 mg/dl Test 07/18/16 06:40 07/18/16 11:27 Bedside Glucose 106 mg/dl 94 mg/dl Assessment and Plan Pt is a 85 yo female who presents from the [facility] with shortness of breath, altered mental status Acute hypoxic respiratory failure / Shortness of breath Multi factorial; pleural effusion, bronchitis, Obesity hypoventilation syndrome and acute on chronic diastolic CHF exacerbation. continue lasix 40 mg IV daily and check daily weight and I/Os. CXR 07/17/15 noted (bilateral pleural effusions) continue on oxygen as well as duoneb treatments awaiting ECHO. Add levofloxacin for bronchitis add guaifenesin Encephalopathy - likely secondary to above vs hypertensive in etiology. cont Lopressor and hydralazine repeat CT head in am Hx of atrial fibrillation - currently in sinus, cont xarelto Iron deficiency anemia - At baseline, cont iron supp Chronic kidney disease stage 3 - Creatinine at baseline. Will continue to monitor with daily PRPs. Obesity hypoventilation syndrome - Will continue outpatient regimen, nebulizer treatment, and oxygen. Type 2 diabetes - Cont on diabetic diet and ISS. Will check HgA1c DVT ppx with xarelto
[2016-07-18] MEDS: GABAPENTIN 100 MG CAP PO SCH (12:42)
[2016-07-18] MEDS: LEVOFLOXACIN / D5W 500 MG in PREMIXED IN D5W 100 ML IV SCH (13:00)
--- NOTE | 2016-07-18 17:41 | ECHOCARDIOGRAM REPORT ---
*NOTICE TO RECEIVING [facility] This information is strictly Confidential and protected under [place] law. [place] law prohibits you from making any further disclosure of this information unless further disclosure is expressly permitted by the written consent of the person to whom it pertains or is authorized by law. A general authorization for the release of medical or other information is not sufficient for this purpose. Hospital accepts no responsibility if the information is made available to any other person, INCLUDING THE PATIENT. Interpretation Summary * Name: FARAZ MATTHEW Study Date: 07/18/2016 06:47 AM BP: 100/57 mmHg * Patient Location: C.2T\S\S233\S\1 HR: 62 * : 1930 (M/d/yyyy) Gender: Female Height: 65 in * Age: 85 yrs Ethnicity: [place] Weight: 199 lb * Ordering Physician: Jarrett Tello * [facility] * Performed By: Robina Butler * * Reason For Study: SOB * BSA: 2.0 m2 * -- Conclusions -- * 1. Normal LV size. Normal LV wall thickness. * 2. Normal LV systolic function. LVEF 55-60 %. Technically limited study, cannot rule out regional motion abnormalities. * 3. Normal RV size and function. * 4. Mild aortic sclerosis without significant stenosis * 5. Grade 1 diastolic dysfunction * 6. Compared with prior study on 03/06/2015: No significant change Procedure Details * A complete two-dimensional transthoracic echocardiogram was performed (2D, M-mode, Doppler and color flow Doppler). * The study was technically limited. * The study was technically difficult. * There were technical limitations due to patient'spoor positioning * A contrast injection of Definity was performed to improve assessment of LV function. * Contrast was injected into an intravenous site in the right arm. * One vial of Definity ultrasound contrast was diluted in normal saline to a total volume of 10 ml. A total of '5' ml of solution was administered during imaging. * Lot # [id number] of Definity utilized for procedure. * Expiration date 12/17. Left Ventricle * The left ventricle is grossly normal size. * There is normal left ventricular wall thickness. * Ejection Fraction = 55-60%. * Regional wall motion abnormalities cannot be excluded due to limited visualization. Right Ventricle * The right ventricle is grossly normal size. * The right ventricular systolic function is qualitatively normal. Atria * The left atrium is mildly dilated. * Right atrial size is normal. * No ASD detected; PFO is not assessed. Mitral Valve * There is mild mitral annular calcification. * The mitral valve is grossly normal. * There is no mitral valve stenosis. * Significant mitral regurgitation is absent. Tricuspid Valve * The tricuspid valve is not well visualized. * There is no tricuspid stenosis. * Significant tricuspid regurgitation is absent. Aortic Valve * The aortic valve is trileaflet. * Aortic valve sclerosis mild, without significant aortic valvular stenosis. * No hemodynamically significant valvular aortic stenosis. * There is no significant aortic regurgitation. Pulmonic Valve * The pulmonary valve is inadequately visualized, but the Doppler data is adequate for interpretation. * Pulmonic stenosis is absent. * Trace pulmonic valvular regurgitation. Great Vessels * The aortic root and proximal ascending aorta are normal sized. Pericardium/Pleural * There is no pericardial effusion. Left Ventricular Diastolic Function * Grade I diastolic dysfunction, (abnormal relaxation pattern). MMode 2D Measurements and Calculations IVSd 0.98 cm IVSs 1.7 cm LVIDd 4.0 cm LVIDs 2.6 cm LVPWd 1.0 cm LVPWs 1.4 cm IVS/LVPW 0.94 FS 33.3 % EDV(Teich) 68.2 ml ESV(Teich) 25.6 ml EF(Teich) 62.5 % EDV(cubed) 62.0 ml ESV(cubed) 18.4 ml EF(cubed) 70.3 % % IVS thick 75.1 % % LVPW thick 34.1 % LV mass(C)d 126.7 grams LV mass(C)dI 64.2 grams/m\S\2 LV mass(C)s 143.6 grams LV mass(C)sI 72.7 grams/m\S\2 SV(Teich) 42.7 ml SI(Teich) 21.6 ml/m\S\2 SV(cubed) 43.5 ml SI(cubed) 22.1 ml/m\S\2 ACS 0.71 cm LA dimension 3.8 cm asc Aorta Diam 2.4 cm LVOT diam 2.0 cm LVOT area 3.1 cm\S\2 Doppler Measurements and Calculations MV E max nicole 57.8 cm/sec MV A max nicole 76.5 cm/sec MV E/A 0.75 MV dec time 0.31 sec Ao V2 max 147.7 cm/sec Ao max PG 8.7 mmHg Ao max PG (full) 4.9 mmHg MANISHA(V,A) 2.1 cm\S\2 MANISHA(V,D) 2.1 cm\S\2 LV V1 max PG 3.8 mmHg LV V1 mean PG 1.9 mmHg LV V1 max 97.7 cm/sec LV V1 mean 64.2 cm/sec LV V1 VTI 23.5 cm SV(LVOT) 73.4 ml SI(LVOT) 37.2 ml/m\S\2 PA V2 max 153.5 cm/sec PA max PG 9.4 mmHg PA V2 mean 94.3 cm/sec PA mean PG 4.4 mmHg PA V2 VTI 34.2 cm PI end-d nicole 103.2 cm/sec
[2016-07-18] MEDS: LACTOBACILLUS ACIDOPHILUS 1 GM PACK PO SCH (18:31)
[2016-07-18] MEDS: RIVAROXABAN TAB 15 MG TAB PO SCH (18:34)
[2016-07-18] MEDS: ERYTHROMYCIN OP OINT 5 MG/GM 3.5 GM TUBE OPB SCH (19:39)
[2016-07-18] MEDS: GUAIFENESIN 600 MG TABCR PO SCH (19:43)
[2016-07-18] MEDS: CARBIDOPA/LEVODOPA 25/100MG TAB PO SCH (19:43)
[2016-07-18] MEDS: ATORVASTATIN 10 MG TAB PO SCH (19:44)
[2016-07-19] VITALS (11 sets, daily range): BP systolic 121–180; BP diastolic 56–80; PULSE 58–71; TEMP 36.4–37; O2SAT 94–99
[2016-07-19] MEDS: TRAMADOL HCL 50 MG TAB PO SCH ×4 (00:30→17:06)
[2016-07-19] MEDS: NITROGLYCERIN OINT 2% 1GM PACKET EXT SCH ×4 (00:30→17:07)
[2016-07-19 06:11] LABS: BASO % 0.1 %; BASO ABS # 0.01 K/uL (0-0.2); COMPLETE YES; EOS % 0.1 %; HEMATOCRIT 36.7 % (37-47); IG% 0.7 %; LYMPH % 32.7 %; LYMPH ABS # 2.25 K/uL (1.2-3.4); MEAN CELL VOLUME 95.1 fL (80-100); MEAN CORPUSCULAR HEMOGLOBIN 29.8 pg (25-34); MEAN CORPUSCULAR HGB CONC 31.3 g/dl (32-36); MEAN PLATELET VOLUME 10.6 fL (7.4-10.4); MONO % 5.1 %; NEUT % 61.3 %; PLATELET COUNT 232 K/uL (130-400); RED BLOOD COUNT 3.86 M/uL (4.2-5.4); WHITE BLOOD COUNT 6.89 K/uL (4.8-10.8)
[2016-07-19 06:57] LABS: BUN/CREATININE RATIO 27.9 (10-20); CALCIUM 8.7 mg/dl (8.5-10.1); CREATININE 1.2 mg/dl (0.60-1.20); MAGNESIUM 2.7 mg/dl (1.8-2.4); POTASSIUM 3.9 mmol/L (3.5-5.1)
[2016-07-19 07:15] LABS: ALB/GLOB RATIO 0.7 (0.9-2); PHOSPHORUS 1.7 mg/dl (2.5-4.9)
[2016-07-19] MEDS: BUDESONIDE 0.5 MG/2 ML VIAL (PULMICORT) INH SCH ×2 (07:43→20:09)
[2016-07-19] MEDS: ALBUT/IPRATROP 3MG/0.5MG NEB 3 ML VIAL INH SCH ×4 (07:43→20:09)
[2016-07-19] MEDS: GABAPENTIN 300 MG CAP PO SCH ×2 (07:46→20:48)
[2016-07-19] MEDS: ALLOPURINOL 100 MG TAB PO SCH ×2 (07:46→20:48)
[2016-07-19] MEDS: MAGNESIUM OXIDE 400 MG TAB PO SCH ×3 (07:46→20:48)
[2016-07-19] MEDS: LACTOBACILLUS ACIDOPHILUS 1 GM PACK PO SCH ×3 (07:46→16:25)
[2016-07-19] MEDS: FLUTICASONE PROPIONATE NA SPR 16 GM BTL SCH (07:46)
[2016-07-19] MEDS: DOCUSATE SODIUM 100 MG CAP PO SCH ×2 (07:46→20:48)
[2016-07-19] MEDS: AZITHROMYCIN 250 MG TAB PO SCH (07:46)
[2016-07-19] MEDS: ROPINIROLE HCL 1 MG TAB PO SCH ×3 (07:47→20:48)
[2016-07-19] MEDS: VITAMIN B COMPLEX TAB PO SCH (07:48)
[2016-07-19] MEDS: GUAIFENESIN 600 MG TABCR PO SCH ×2 (07:48→20:48)
[2016-07-19] MEDS: FERROUS SULFATE 325 MG TAB PO SCH ×2 (07:48→16:25)
[2016-07-19] MEDS: METOPROLOL TARTRATE 25 MG TAB PO SCH (07:48)
[2016-07-19] MEDS: MEGESTROL ACETATE 400 MG/10 ML UDP PO SCH ×2 (07:49→20:45)
[2016-07-19] MEDS: MULTIVITAMIN TAB PO SCH (07:49)
[2016-07-19] MEDS: INSULIN ASPART 100 UNITS/ML 3 ML PEN SC SCH ×4 (07:56→20:45)
[2016-07-19] MEDS: RESTASIS-ORDER AWAITING ACTION SCH (07:56)
[2016-07-19] MEDS: FUROSEMIDE INJ 40 MG in SYRINGE 0 ML IV SCH (08:50)
[2016-07-19] MEDS: GABAPENTIN 100 MG CAP PO SCH (11:48)
[2016-07-19] MEDS: LEVOFLOXACIN / D5W 500 MG in PREMIXED IN D5W 100 ML IV SCH (11:50)
[2016-07-19] MEDS: HydrALAZINE HCL 20 MG/ML VIAL IV. PRN (14:20)
[2016-07-19] MEDS: HYDROCODONE/HOMATROPINE SYRUP 5MG/1.5MG 5ML UDP PO PRN (14:23)
[2016-07-19] MEDS: RIVAROXABAN TAB 15 MG TAB PO SCH (16:25)
[2016-07-19] MEDS ORDERED: SODIUM CHLORIDE 0.9% 1000ML 1,000 ML IV SCH (18:30)
--- NOTE | 2016-07-19 18:41 | Progress Note ---
Subjective Date of Service: Jul 19, 2016. Subjective Pt evaluation today including: conversation w/ patient, chart review, lab review, review of studies Voiding: no voiding problems Problem List Medical Problems: (1) CVA (cerebral vascular accident) Status: Acute (2) Hypoxia Status: Acute (3) Pulmonary edema Status: Acute (4) Respiratory distress Status: Acute (5) Viral syndrome Status: Acute Review of Systems slightly confused followed simple commands but ROS was unobtainable Medications Current Inpatient Medications Medications (Trade) Dose Ordered Sig/Jaquelin Route Start Time Stop Time Status Last Admin Dose Admin Acetaminophen (Tylenol Tab) 650 mg Q4H PRN PO 07/17/16 16:00 08/16/16 15:59 Al Hydrox/Mg Hydrox/Simethicone (Maalox Max Susp) 15 ml Q4H PRN PO 07/17/16 16:00 08/16/16 15:59 Ondansetron HCl (Zofran Inj) 4 mg Q6H PRN IV 07/17/16 16:00 08/16/16 15:59 Allopurinol (Zyloprim Tab) 100 mg Q12 PO 07/17/16 21:00 08/16/16 20:59 07/19/16 07:46 100 MG Atorvastatin Calcium (Lipitor Tab) 10 mg HS PO 07/17/16 21:00 08/16/16 20:59 07/18/16 19:44 10 MG Budesonide (Pulmicort Respules 0.5MG/ 2ML Neb Soln) 0.5 mg Q12 INH 07/17/16 21:00 08/16/16 20:59 07/19/16 07:43 0.5 MG Carbidopa/Levodopa (Sinemet 25/ 100MG Tab) 1 tab HS PO 07/17/16 21:00 08/16/16 20:59 07/18/16 19:43 1 TAB Diclofenac Sodium (Voltaren 1% Top Gel) 1 appln TID PRN EXT 07/17/16 16:15 08/16/16 16:14 Docusate Sodium (coLACE CAP) 100 mg BID PO 07/17/16 21:00 08/16/16 20:59 07/19/16 07:46 100 MG Erythromycin (Erythromycin Oph Oint) 1 appln HS OPB 07/17/16 21:00 07/27/16 20:59 07/18/16 19:39 1 APPLN Ferrous Sulfate (Feosol Tab) 325 mg BIDM PO 07/17/16 17:53 08/16/16 17:59 07/19/16 16:25 325 MG Fluticasone Propionate (Flonase Nasal [place]) 1 sprays DAILY NA 07/18/16 09:00 08/17/16 08:59 07/19/16 07:46 1 SPRAYS Gabapentin (Neurontin Cap) 100 mg DAILY@1200 PO 07/18/16 12:00 08/17/16 11:59 07/19/16 11:48 100 MG Gabapentin (Neurontin Cap) 300 mg BID PO 07/17/16 21:00 08/16/16 20:59 07/19/16 07:46 300 MG Guaifenesin (Mucinex Contr Rel Tab) 600 mg Q12 PRN PO 07/17/16 16:15 08/16/16 16:14 07/18/16 08:00 600 MG Hydrocodone Bit/ Homatropine Methylb (Hycodan Syrup) 5 ml Q4H PRN PO 07/17/16 16:15 07/31/16 16:14 07/19/16 14:23 5 ML Magnesium Oxide (Mag-Ox Tab) 400 mg TID PO 07/17/16 21:00 08/16/16 20:59 07/19/16 13:39 400 MG Megestrol Acetate (Megace Susp) 400 mg BID PO 07/17/16 21:00 08/16/16 20:59 07/19/16 07:49 400 MG Metoprolol Tartrate (Lopressor Tab) 12.5 mg DAILY PO 07/18/16 09:00 08/17/16 08:59 07/19/16 07:48 12.5 MG Multivitamins (Multivitamin Tab) 1 tab DAILY PO 07/18/16 09:00 08/17/16 08:59 07/19/16 07:49 1 TAB Oxycodone/ Acetaminophen (Percocet 5-325MG Tab) 1 tab Q12 PRN PO 07/17/16 16:15 07/31/16 16:14 Prednisone (PredniSONE TAB) 10 mg DAILY PO 07/18/16 09:00 08/17/16 08:59 07/19/16 07:49 10 MG Rivaroxaban (Xarelto Tab) 15 mg QDD PO 07/17/16 16:45 08/16/16 16:44 07/19/16 16:25 15 MG Ropinirole HCl (Requip Tab) 3 mg TID PO 07/17/16 21:00 08/16/16 20:59 07/19/16 13:39 3 MG Tramadol HCl (Ultram Tab) 50 mg Q6 PO 07/17/16 18:00 08/16/16 17:59 07/19/16 17:06 50 MG Vitamin B Complex (Vitamin B Complex) 1 tab DAILY PO 07/18/16 09:00 08/17/16 08:59 07/19/16 07:48 1 TAB Hydralazine HCl (HydrALAZINE INJ) 10 mg Q4 PRN IV. 07/17/16 16:15 08/16/16 16:14 07/19/16 14:20 10 MG Insulin Aspart (novoLOG ASPART) SLIDING SCALE If C... ACHS SC 07/17/16 21:00 08/16/16 20:59 07/19/16 17:10 2 UNITS Glucose (Glucose 40% Gel) 15-30 GRAMS 15 GRAMS... UD PRN PO 07/17/16 16:15 08/16/16 16:14 Glucose (Glucose Chew Tab) 4-8 Tablets 4 Tabl... UD PRN PO 07/17/16 16:15 08/16/16 16:14 Dextrose (Dextrose 50% 50ML Syringe) 25-50ML OF 50% DW IV FOR... UD PRN IV 07/17/16 16:15 08/16/16 16:14 Glucagon 1 mg 1 mg UD PRN SQ 07/17/16 16:15 08/16/16 16:14 Furosemide/Syringe (Lasix Inj/ Syringe) 4 ml @ 4 mls/min DAILY IV 07/18/16 09:00 08/17/16 08:59 07/19/16 08:50 4 MLS/MIN Albuterol/ Ipratropium (Duoneb) 3 ml QIDR INH 07/17/16 20:00 08/16/16 19:59 07/19/16 16:14 3 ML Azithromycin (Zithromax Tab) 250 mg QAM PO 07/18/16 09:00 07/23/16 08:59 07/19/16 07:46 250 MG Miscellaneous Information (Order Awaiting Action) 1 ea QS N/A 07/18/16 00:00 08/17/16 00:00 Nitroglycerin 1 inch 1 inch Q6 EXT 07/18/16 00:00 08/17/16 00:00 07/19/16 17:07 1 INCH Levofloxacin/Prmx (Levaquin / D5W/ Premixed D5W) 100 ml @ 100 mls/hr DAILY@1200 IV 07/18/16 13:00 07/23/16 11:59 07/19/16 11:50 100 MLS/HR Lactobacillus Acidophilus (Lactinex Granules Pack) 1 gm TIDM PO 07/18/16 16:45 08/17/16 16:44 07/19/16 16:25 1 GM Guaifenesin (Mucinex Contr Rel Tab) 600 mg Q12 PO 07/18/16 21:00 08/17/16 20:59 07/19/16 07:48 600 MG Objective Vital Signs Date Time Temp Pulse Resp B/P Pulse Ox O2 Delivery O2 Flow Rate FiO2 07/19/16 16:14 66 20 94 Nasal Cannula 2.0 07/19/16 16:00 Nasal Cannula 2.0 07/19/16 15:19 36.7 68 22 147/70 97 Nasal Cannula 2.0 07/19/16 12:00 Nasal Cannula 2.0 07/19/16 11:56 37.0 58 22 167/77 96 Nasal Cannula 2.0 07/19/16 11:51 59 20 95 Nasal Cannula 2.0 07/19/16 08:00 Nasal Cannula 2.0 07/19/16 07:53 36.6 71 28 173/80 99 Nasal Cannula 2.0 07/19/16 07:43 68 20 97 Nasal Cannula 2.0 07/19/16 04:00 Nasal Cannula 2.0 07/19/16 03:46 36.6 64 22 180/67 95 Nasal Cannula 2.0 07/19/16 00:12 36.4 63 22 158/68 98 Nasal Cannula 2.0 07/19/16 00:00 Nasal Cannula 2.0 07/18/16 20:00 Nasal Cannula 2.0 07/18/16 19:53 36.9 64 16 162/53 100 Nasal Cannula 2.0 07/18/16 19:35 63 20 98 Nasal Cannula 2.0 Physical Exam General Appearance: no apparent distress Eyes: normal inspection, PERRL, EOMI ENT: normal ENT inspection, hearing grossly normal Neck: supple Respiratory/Chest: chest non-tender, lungs clear, normal breath sounds, no respiratory distress, no accessory muscle use Cardiovascular: regular rate, rhythm, no edema, no gallop, no JVD, no murmur Abdomen: normal bowel sounds, non tender, soft, no organomegaly Extremities: normal range of motion, non-tender, normal inspection, no pedal edema, no calf tenderness 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, no motor/sensory deficits, alert, + pertinent finding (slightly confused but followed commands) Skin: normal color, warm/dry Laboratory Results Last 24 Hours Test 07/18/16 20:28 07/19/16 05:37 07/19/16 06:46 07/19/16 06:48 Bedside Glucose 73 mg/dl 68 mg/dl 66 mg/dl White Blood Count 6.89 K/uL Red Blood Count 3.86 M/uL Hemoglobin 11.5 g/dL Hematocrit 36.7 % Mean Corpuscular Volume 95.1 fL Mean Corpuscular Hemoglobin 29.8 pg Mean Corpuscular Hemoglobin Concent 31.3 g/dl Platelet Count 232 K/uL Mean Platelet Volume 10.6 fL Neutrophils (%) (Auto) 61.3 % Lymphocytes (%) (Auto) 32.7 % Monocytes (%) (Auto) 5.1 % Eosinophils (%) (Auto) 0.1 % Basophils (%) (Auto) 0.1 % Neutrophils # (Auto) 4.22 K/uL Lymphocytes # (Auto) 2.25 K/uL Monocytes # (Auto) 0.35 K/uL Eosinophils # (Auto) 0.01 K/uL Basophils # (Auto) 0.01 K/uL RDW Standard Deviation 50.3 fL RDW Coefficient of Variation 14.7 % Immature Granulocyte % (Auto) 0.7 % Immature Granulocyte # (Auto) 0.05 K/uL Sodium Level 144 mmol/L Potassium Level 3.9 mmol/L Chloride Level 107 mmol/L Carbon Dioxide Level 29 mmol/L Anion Gap 8.0 mmol/L Blood Urea Nitrogen 34 mg/dl Creatinine 1.20 mg/dl Est Creatinine Clear Calc Drug Dose 37.0 ml/min Estimated GFR () 47.7 Estimated GFR (Non- 41.2 BUN/Creatinine Ratio 27.9 Random Glucose 68 mg/dl Calcium Level 8.7 mg/dl Phosphorus Level 1.7 mg/dl Magnesium Level 2.7 mg/dl Total Bilirubin 0.3 mg/dl Aspartate Amino Transf (AST/SGOT) 19 U/L Alanine Aminotransferase (ALT/SGPT) 10 U/L Alkaline Phosphatase 77 U/L Total Protein 7.1 gm/dl Albumin 2.9 gm/dl Globulin 4.2 gm/dl Albumin/Globulin Ratio 0.7 Test 07/19/16 07:21 07/19/16 10:46 07/19/16 15:57 Bedside Glucose 77 mg/dl 104 mg/dl 122 mg/dl Assessment and Plan Pt is a 85 yo female who presents from the [facility] with shortness of breath, altered mental status Acute hypoxic respiratory failure / Shortness of breath Multi factorial; pleural effusion, bronchitis, Obesity hypoventilation syndrome and acute on chronic diastolic CHF exacerbation. Hold lasix 40 mg IV daily as creatinine pumped from 0.9 to 1.2 which in her age is significant CXR 07/17/15 noted (bilateral pleural effusions) continue on oxygen as well as duoneb treatments ECHO. was revied: * 1. Normal LV size. Normal LV wall thickness. * 2. Normal LV systolic function. LVEF 55-60 %. Technically limited study, cannot rule out regional motion abnormalities. * 3. Normal RV size and function. * 4. Mild aortic sclerosis without significant stenosis * 5. Grade 1 diastolic dysfunction * 6. Compared with prior study on 03/06/2015: No significant change continue levofloxacin for bronchitis/UTI add guaifenesin Encephalopathy - likely secondary to above vs hypertensive in etiology. cont Lopressor and hydralazine UTI present on admission Urine Cx growing E coli continue levofloxacin Hx of atrial fibrillation - currently in sinus, cont xarelto Iron deficiency anemia - At baseline, cont iron supp Chronic kidney disease stage 3 - Creatinine at baseline. Will continue to monitor with daily PRPs. Obesity hypoventilation syndrome - Will continue outpatient regimen, nebulizer treatment, and oxygen. Obesity with BMI of 30 Type 2 diabetes - Cont on diabetic diet and ISS. Will check HgA1c DVT ppx with xarelto
[2016-07-19] MEDS: ERYTHROMYCIN OP OINT 5 MG/GM 3.5 GM TUBE OPB SCH (20:45)
[2016-07-19] MEDS: ATORVASTATIN 10 MG TAB PO SCH (20:48)
[2016-07-19] MEDS: CARBIDOPA/LEVODOPA 25/100MG TAB PO SCH (20:48)
[2016-07-20] VITALS (11 sets, daily range): BP systolic 117–137; BP diastolic 56–69; PULSE 55–76; TEMP 36.5–36.7; O2SAT 90–100
[2016-07-20] MEDS: NITROGLYCERIN OINT 2% 1GM PACKET EXT SCH ×4 (00:35→17:12)
[2016-07-20] MEDS: TRAMADOL HCL 50 MG TAB PO SCH ×4 (00:35→17:04)
[2016-07-20 06:38] LABS: BASO % 0.1 %; BASO ABS # 0.01 K/uL (0-0.2); COMPLETE YES; EOS % 0.1 %; HEMATOCRIT 36.1 % (37-47); IG% 0.7 %; LYMPH % 23.6 %; LYMPH ABS # 1.64 K/uL (1.2-3.4); MEAN CORPUSCULAR HEMOGLOBIN 29.4 pg (25-34); MEAN CORPUSCULAR HGB CONC 31.3 g/dl (32-36); MEAN PLATELET VOLUME 10.3 fL (7.4-10.4); MONO % 7.6 %; NEUT % 67.9 %; PLATELET COUNT 199 K/uL (130-400); RED BLOOD COUNT 3.84 M/uL (4.2-5.4); WHITE BLOOD COUNT 6.95 K/uL (4.8-10.8)
[2016-07-20 07:13] LABS: BUN/CREATININE RATIO 26.7 (10-20); CALCIUM 8.9 mg/dl (8.5-10.1); CREATININE 1.5 mg/dl (0.60-1.20)
[2016-07-20] MEDS: ALBUT/IPRATROP 3MG/0.5MG NEB 3 ML VIAL INH SCH ×4 (07:24→20:04)
[2016-07-20] MEDS: BUDESONIDE 0.5 MG/2 ML VIAL (PULMICORT) INH SCH ×2 (07:24→20:04)
[2016-07-20] MEDS: ROPINIROLE HCL 1 MG TAB PO SCH ×3 (08:03→20:52)
[2016-07-20] MEDS: ALLOPURINOL 100 MG TAB PO SCH ×2 (08:04→20:50)
[2016-07-20] MEDS: FERROUS SULFATE 325 MG TAB PO SCH ×2 (08:04→15:44)
[2016-07-20] MEDS: GABAPENTIN 300 MG CAP PO SCH ×2 (08:04→20:53)
[2016-07-20] MEDS: DOCUSATE SODIUM 100 MG CAP PO SCH ×2 (08:04→20:51)
[2016-07-20] MEDS: MAGNESIUM OXIDE 400 MG TAB PO SCH ×3 (08:04→20:54)
[2016-07-20] MEDS: MULTIVITAMIN TAB PO SCH (08:05)
[2016-07-20] MEDS: VITAMIN B COMPLEX TAB PO SCH (08:06)
[2016-07-20] MEDS: GUAIFENESIN 600 MG TABCR PO SCH ×2 (08:06→20:52)
[2016-07-20] MEDS: METOPROLOL TARTRATE 25 MG TAB PO SCH (08:06)
[2016-07-20] MEDS: LACTOBACILLUS ACIDOPHILUS 1 GM PACK PO SCH ×3 (08:06→15:44)
[2016-07-20] MEDS: MEGESTROL ACETATE 400 MG/10 ML UDP PO SCH ×2 (08:07→20:52)
[2016-07-20] MEDS: FLUTICASONE PROPIONATE NA SPR 16 GM BTL SCH (08:08)
[2016-07-20] MEDS: INSULIN ASPART 100 UNITS/ML 3 ML PEN SC SCH ×4 (08:45→20:58)
--- NOTE | 2016-07-20 09:52 | Progress Note ---
Subjective Date of Service: Jul 20, 2016. Subjective Pt evaluation today including: conversation w/ patient, conversation w/ family , physical exam, chart review, lab review, review of studies Voiding: no voiding problems Problem List Medical Problems: (1) CVA (cerebral vascular accident) Status: Acute (2) Hypoxia Status: Acute (3) Pulmonary edema Status: Acute (4) Respiratory distress Status: Acute (5) Viral syndrome Status: Acute Review of Systems Constitutional: No chills, No fever Eyes: No worsening of vision ENT: No hearing loss Respiratory: + cough, + shortness of breath, + sputum, No dyspnea on exertion, No wheezing Cardiac: No chest pain, No edema, No orthopnea Abdomen: No diarrhea, No nausea, No pain, No vomiting Musculoskeletal: No joint pain Female : No dysuria, No urinary frequency Neurologic: No memory loss Psychiatric: No depression symptoms Heme: No abnormal bleeding/bruising Endo: No fatigue Skin: No rash Medications Current Inpatient Medications Medications (Trade) Dose Ordered Sig/Jaquelin Route Start Time Stop Time Status Last Admin Dose Admin Acetaminophen (Tylenol Tab) 650 mg Q4H PRN PO 07/17/16 16:00 08/16/16 15:59 Al Hydrox/Mg Hydrox/Simethicone (Maalox Max Susp) 15 ml Q4H PRN PO 07/17/16 16:00 08/16/16 15:59 Ondansetron HCl (Zofran Inj) 4 mg Q6H PRN IV 07/17/16 16:00 08/16/16 15:59 Allopurinol (Zyloprim Tab) 100 mg Q12 PO 07/17/16 21:00 08/16/16 20:59 07/20/16 08:04 100 MG Atorvastatin Calcium (Lipitor Tab) 10 mg HS PO 07/17/16 21:00 08/16/16 20:59 07/19/16 20:48 10 MG Budesonide (Pulmicort Respules 0.5MG/ 2ML Neb Soln) 0.5 mg Q12 INH 07/17/16 21:00 08/16/16 20:59 07/20/16 07:24 0.5 MG Carbidopa/Levodopa (Sinemet 25/ 100MG Tab) 1 tab HS PO 07/17/16 21:00 08/16/16 20:59 07/19/16 20:48 1 TAB Diclofenac Sodium (Voltaren 1% Top Gel) 1 appln TID PRN EXT 07/17/16 16:15 08/16/16 16:14 Docusate Sodium (coLACE CAP) 100 mg BID PO 07/17/16 21:00 08/16/16 20:59 07/20/16 08:04 100 MG Erythromycin (Erythromycin Oph Oint) 1 appln HS OPB 07/17/16 21:00 07/27/16 20:59 07/19/16 20:45 1 APPLN Ferrous Sulfate (Feosol Tab) 325 mg BIDM PO 07/17/16 17:53 08/16/16 17:59 07/20/16 08:04 325 MG Fluticasone Propionate (Flonase Nasal [place]) 1 sprays DAILY NA 07/18/16 09:00 08/17/16 08:59 07/20/16 08:08 1 SPRAYS Gabapentin (Neurontin Cap) 100 mg DAILY@1200 PO 07/18/16 12:00 08/17/16 11:59 07/19/16 11:48 100 MG Gabapentin (Neurontin Cap) 300 mg BID PO 07/17/16 21:00 08/16/16 20:59 07/20/16 08:04 300 MG Guaifenesin (Mucinex Contr Rel Tab) 600 mg Q12 PRN PO 07/17/16 16:15 08/16/16 16:14 07/18/16 08:00 600 MG Hydrocodone Bit/ Homatropine Methylb (Hycodan Syrup) 5 ml Q4H PRN PO 07/17/16 16:15 07/31/16 16:14 07/19/16 14:23 5 ML Magnesium Oxide (Mag-Ox Tab) 400 mg TID PO 07/17/16 21:00 08/16/16 20:59 07/20/16 08:04 400 MG Megestrol Acetate (Megace Susp) 400 mg BID PO 07/17/16 21:00 08/16/16 20:59 07/20/16 08:07 400 MG Metoprolol Tartrate (Lopressor Tab) 12.5 mg DAILY PO 07/18/16 09:00 08/17/16 08:59 07/20/16 08:06 12.5 MG Multivitamins (Multivitamin Tab) 1 tab DAILY PO 07/18/16 09:00 08/17/16 08:59 07/20/16 08:05 1 TAB Oxycodone/ Acetaminophen (Percocet 5-325MG Tab) 1 tab Q12 PRN PO 07/17/16 16:15 07/31/16 16:14 Prednisone (PredniSONE TAB) 10 mg DAILY PO 07/18/16 09:00 08/17/16 08:59 07/20/16 08:05 10 MG Rivaroxaban (Xarelto Tab) 15 mg QDD PO 07/17/16 16:45 08/16/16 16:44 07/19/16 16:25 15 MG Ropinirole HCl (Requip Tab) 3 mg TID PO 07/17/16 21:00 08/16/16 20:59 07/20/16 08:03 3 MG Tramadol HCl (Ultram Tab) 50 mg Q6 PO 07/17/16 18:00 08/16/16 17:59 07/20/16 06:10 50 MG Vitamin B Complex (Vitamin B Complex) 1 tab DAILY PO 07/18/16 09:00 08/17/16 08:59 07/20/16 08:06 1 TAB Hydralazine HCl (HydrALAZINE INJ) 10 mg Q4 PRN IV. 07/17/16 16:15 08/16/16 16:14 07/19/16 14:20 10 MG Insulin Aspart (novoLOG ASPART) SLIDING SCALE If C... ACHS SC 07/17/16 21:00 08/16/16 20:59 07/19/16 17:10 2 UNITS Glucose (Glucose 40% Gel) 15-30 GRAMS 15 GRAMS... UD PRN PO 07/17/16 16:15 08/16/16 16:14 Glucose (Glucose Chew Tab) 4-8 Tablets 4 Tabl... UD PRN PO 07/17/16 16:15 08/16/16 16:14 Dextrose (Dextrose 50% 50ML Syringe) 25-50ML OF 50% DW IV FOR... UD PRN IV 07/17/16 16:15 08/16/16 16:14 Glucagon (Glucagon Inj) 1 mg UD PRN SQ 07/17/16 16:15 08/16/16 16:14 Albuterol/ Ipratropium (Duoneb) 3 ml QIDR INH 07/17/16 20:00 08/16/16 19:59 07/20/16 07:24 3 ML Miscellaneous Information (Order Awaiting Action) 1 ea QS N/A 07/18/16 00:00 08/17/16 00:00 Nitroglycerin 1 inch 1 inch Q6 EXT 07/18/16 00:00 08/17/16 00:00 07/20/16 06:10 1 INCH Levofloxacin/Prmx (Levaquin / D5W/ Premixed D5W) 100 ml @ 100 mls/hr DAILY@1200 IV 07/18/16 13:00 07/23/16 11:59 07/19/16 11:50 100 MLS/HR Lactobacillus Acidophilus (Lactinex Granules Pack) 1 gm TIDM PO 07/18/16 16:45 08/17/16 16:44 07/20/16 08:06 1 GM Guaifenesin 600 mg 600 mg Q12 PO 07/18/16 21:00 08/17/16 20:59 07/20/16 08:06 600 MG Sodium Chloride (Nss 1000ml) 1,000 ml @ 50 mls/hr Q20H IV 07/19/16 18:30 08/18/16 18:29 Objective Vital Signs Date Time Temp Pulse Resp B/P Pulse Ox O2 Delivery O2 Flow Rate FiO2 07/20/16 08:00 Nasal Cannula 2.0 07/20/16 07:55 36.7 69 20 131/63 93 07/20/16 07:24 58 16 98 Nasal Cannula 2.0 07/20/16 04:00 Nasal Cannula 2.0 07/20/16 03:50 36.5 64 22 131/69 98 Nasal Cannula 2.0 07/20/16 00:37 36.5 76 20 121/56 94 Nasal Cannula 2.0 07/20/16 00:00 Nasal Cannula 2.0 07/19/16 20:09 62 16 97 Nasal Cannula 2.0 07/19/16 20:00 Nasal Cannula 2.0 07/19/16 19:10 36.7 62 20 121/56 94 Nasal Cannula 2.0 07/19/16 16:14 66 20 94 Nasal Cannula 2.0 07/19/16 16:00 Nasal Cannula 2.0 07/19/16 15:19 36.7 68 22 147/70 97 Nasal Cannula 2.0 07/19/16 12:00 Nasal Cannula 2.0 07/19/16 11:56 37.0 58 22 167/77 96 Nasal Cannula 2.0 07/19/16 11:51 59 20 95 Nasal Cannula 2.0 Physical Exam General Appearance: no apparent distress, + obese Eyes: normal inspection, PERRL, EOMI ENT: normal ENT inspection, hearing grossly normal, TMs normal, pharynx normal Neck: supple Respiratory/Chest: chest non-tender, + crackles, + rhonchi Cardiovascular: regular rate, rhythm, no edema, no gallop, no JVD, no murmur Abdomen: normal bowel sounds, non tender, soft, no organomegaly, no pulsatile mass Extremities: normal range of motion, non-tender, normal inspection 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, no motor/sensory deficits, alert, normal mood/affect, oriented x 3 Skin: normal color, warm/dry, no rash Laboratory Results Last 24 Hours Test 07/19/16 10:46 07/19/16 15:57 07/19/16 20:37 07/20/16 06:25 Bedside Glucose 104 mg/dl 122 mg/dl 115 mg/dl White Blood Count 6.95 K/uL Red Blood Count 3.84 M/uL Hemoglobin 11.3 g/dL Hematocrit 36.1 % Mean Corpuscular Volume 94.0 fL Mean Corpuscular Hemoglobin 29.4 pg Mean Corpuscular Hemoglobin Concent 31.3 g/dl Platelet Count 199 K/uL Mean Platelet Volume 10.3 fL Neutrophils (%) (Auto) 67.9 % Lymphocytes (%) (Auto) 23.6 % Monocytes (%) (Auto) 7.6 % Eosinophils (%) (Auto) 0.1 % Basophils (%) (Auto) 0.1 % Neutrophils # (Auto) 4.71 K/uL Lymphocytes # (Auto) 1.64 K/uL Monocytes # (Auto) 0.53 K/uL Eosinophils # (Auto) 0.01 K/uL Basophils # (Auto) 0.01 K/uL RDW Standard Deviation 50.4 fL RDW Coefficient of Variation 14.7 % Immature Granulocyte % (Auto) 0.7 % Immature Granulocyte # (Auto) 0.05 K/uL Sodium Level 144 mmol/L Potassium Level 4.0 mmol/L Chloride Level 104 mmol/L Carbon Dioxide Level 31 mmol/L Anion Gap 9.0 mmol/L Blood Urea Nitrogen 40 mg/dl Creatinine 1.50 mg/dl Est Creatinine Clear Calc Drug Dose 29.3 ml/min Estimated GFR () 36.4 Estimated GFR (Non- 31.4 BUN/Creatinine Ratio 26.7 Random Glucose 84 mg/dl Calcium Level 8.9 mg/dl Test 07/20/16 06:45 Bedside Glucose 83 mg/dl Assessment and Plan Pt is a 85 yo female who presents from the [facility] with shortness of breath, altered mental status Acute hypoxic respiratory failure / Shortness of breath Multi factorial; pleural effusion, bronchitis, Obesity hypoventilation syndrome. Hold lasix 40 mg IV daily as creatinine pumped from 0.9 to 1.2 which in her age is significant CXR 07/17/15 noted (bilateral pleural effusions) continue on oxygen as well as duoneb treatments ECHO. was revied: * 1. Normal LV size. Normal LV wall thickness. * 2. Normal LV systolic function. LVEF 55-60 %. Technically limited study, cannot rule out regional motion abnormalities. * 3. Normal RV size and function. * 4. Mild aortic sclerosis without significant stenosis * 5. Grade 1 diastolic dysfunction * 6. Compared with prior study on 03/06/2015: No significant change Acute bronchitis/UTI continue guaifenesin incentive spirometry Chest PT Encephalopathy - likely secondary to above vs hypertensive in etiology. improved cont Lopressor and hydralazine UTI present on admission Urine Cx growing E coli ESBL DC levofloxacin start imipenem CHRISTIE likely from over diuresis DC lasix gentle fluid hydration Hx of atrial fibrillation - currently in sinus, cont xarelto Iron deficiency anemia - At baseline, cont iron supp Chronic kidney disease stage 3 - Creatinine at baseline. Will continue to monitor with daily PRPs. Obesity hypoventilation syndrome - Will continue outpatient regimen, nebulizer treatment, and oxygen. Obesity with BMI of 30 Type 2 diabetes - Cont on diabetic diet and ISS. Will check HgA1c DVT ppx with xarelto
[2016-07-20] MEDS: IMIPENEM-CILASTATIN 250 MG in DEXTROSE 5% 100ML 100 ML IV SCH ×3 (10:22→21:06)
[2016-07-20] MEDS: SODIUM CHLORIDE 0.9% 1000ML 1,000 ML IV SCH (10:22)
[2016-07-20] MEDS: GABAPENTIN 100 MG CAP PO SCH (11:48)
[2016-07-20] MEDS: RIVAROXABAN TAB 15 MG TAB PO SCH (15:44)
[2016-07-20] MEDS: ATORVASTATIN 10 MG TAB PO SCH (20:50)
[2016-07-20] MEDS: CARBIDOPA/LEVODOPA 25/100MG TAB PO SCH (20:53)
[2016-07-20] MEDS: ERYTHROMYCIN OP OINT 5 MG/GM 3.5 GM TUBE OPB SCH (20:55)
[2016-07-20] MEDS: HYDROCODONE/HOMATROPINE SYRUP 5MG/1.5MG 5ML UDP PO PRN (22:22)
[2016-07-21] VITALS (11 sets, daily range): BP systolic 125–171; BP diastolic 55–72; PULSE 63–96; TEMP 36.7–36.8; O2SAT 93–98
[2016-07-21] MEDS: IMIPENEM-CILASTATIN 250 MG in DEXTROSE 5% 100ML 100 ML IV SCH ×4 (04:11→22:25)
[2016-07-21] MEDS: TRAMADOL HCL 50 MG TAB PO SCH ×4 (05:44→18:17)
[2016-07-21] MEDS: SODIUM CHLORIDE 0.9% 1000ML 1,000 ML IV SCH (05:45)
[2016-07-21] MEDS: NITROGLYCERIN OINT 2% 1GM PACKET EXT SCH ×4 (05:45→17:59)
[2016-07-21] MEDS: ALBUT/IPRATROP 3MG/0.5MG NEB 3 ML VIAL INH SCH ×3 (07:30→20:00)
[2016-07-21 07:41] LABS: BASO % 0.1 %; BASO ABS # 0.01 K/uL (0-0.2); COMPLETE YES; EOS % 0.3 %; HEMATOCRIT 34.1 % (37-47); IG% 0.6 %; LYMPH % 24.4 %; MEAN CELL VOLUME 93.9 fL (80-100); MEAN CORPUSCULAR HEMOGLOBIN 29.8 pg (25-34); MEAN CORPUSCULAR HGB CONC 31.7 g/dl (32-36); MONO % 7.3 %; NEUT % 67.3 %; PLATELET COUNT 219 K/uL (130-400); RED BLOOD COUNT 3.63 M/uL (4.2-5.4); WHITE BLOOD COUNT 6.97 K/uL (4.8-10.8)
[2016-07-21] MEDS: RESTASIS-ORDER AWAITING ACTION SCH ×4 (08:00→23:59)
[2016-07-21] MEDS: METOPROLOL TARTRATE 25 MG TAB PO SCH (08:05)
[2016-07-21] MEDS: DOCUSATE SODIUM 100 MG CAP PO SCH ×2 (08:05→22:00)
[2016-07-21] MEDS: ROPINIROLE HCL 1 MG TAB PO SCH ×3 (08:06→22:01)
[2016-07-21] MEDS: MULTIVITAMIN TAB PO SCH (08:06)
[2016-07-21] MEDS: FERROUS SULFATE 325 MG TAB PO SCH ×2 (08:06→18:10)
[2016-07-21] MEDS: MAGNESIUM OXIDE 400 MG TAB PO SCH ×3 (08:06→21:58)
[2016-07-21] MEDS: VITAMIN B COMPLEX TAB PO SCH (08:07)
[2016-07-21] MEDS: GABAPENTIN 300 MG CAP PO SCH ×2 (08:07→21:58)
[2016-07-21] MEDS: LACTOBACILLUS ACIDOPHILUS 1 GM PACK PO SCH ×3 (08:07→18:05)
[2016-07-21] MEDS: FLUTICASONE PROPIONATE NA SPR 16 GM BTL SCH (08:08)
[2016-07-21] MEDS: GUAIFENESIN 600 MG TABCR PO SCH ×2 (08:08→21:58)
[2016-07-21] MEDS: MEGESTROL ACETATE 400 MG/10 ML UDP PO SCH ×2 (08:08→21:56)
[2016-07-21] MEDS: ALLOPURINOL 100 MG TAB PO SCH ×2 (08:09→22:00)
[2016-07-21 08:20] LABS: BUN/CREATININE RATIO 26.8 (10-20); CALCIUM 8.9 mg/dl (8.5-10.1); CREATININE 1.2 mg/dl (0.60-1.20); MAGNESIUM 2.9 mg/dl (1.8-2.4); POTASSIUM 3.9 mmol/L (3.5-5.1)
[2016-07-21] MEDS: INSULIN ASPART 100 UNITS/ML 3 ML PEN SC SCH ×4 (08:40→21:59)
[2016-07-21] MEDS: BUDESONIDE 0.5 MG/2 ML VIAL (PULMICORT) INH SCH ×2 (08:42→21:00)
[2016-07-21] MEDS: GABAPENTIN 100 MG CAP PO SCH (11:40)
--- NOTE | 2016-07-21 15:27 | Progress Note ---
Subjective Date of Service: Jul 21, 2016. Subjective Pt evaluation today including: conversation w/ patient, conversation w/ family , physical exam, chart review, lab review, review of studies Problem List Medical Problems: (1) CVA (cerebral vascular accident) Status: Acute (2) Hypoxia Status: Acute (3) Pulmonary edema Status: Acute (4) Respiratory distress Status: Acute (5) Viral syndrome Status: Acute Review of Systems unobtainable due to her confusion she was able to state though that she has cough she also denied pain any where Medications Current Inpatient Medications Medications (Trade) Dose Ordered Sig/Jaquelin Route Start Time Stop Time Status Last Admin Dose Admin Acetaminophen (Tylenol Tab) 650 mg Q4H PRN PO 07/17/16 16:00 08/16/16 15:59 Al Hydrox/Mg Hydrox/Simethicone (Maalox Max Susp) 15 ml Q4H PRN PO 07/17/16 16:00 08/16/16 15:59 Ondansetron HCl (Zofran Inj) 4 mg Q6H PRN IV 07/17/16 16:00 08/16/16 15:59 Allopurinol (Zyloprim Tab) 100 mg Q12 PO 07/17/16 21:00 08/16/16 20:59 07/21/16 08:09 100 MG Atorvastatin Calcium (Lipitor Tab) 10 mg HS PO 07/17/16 21:00 08/16/16 20:59 07/20/16 20:50 10 MG Budesonide (Pulmicort Respules 0.5MG/ 2ML Neb Soln) 0.5 mg Q12 INH 07/17/16 21:00 08/16/16 20:59 07/21/16 08:42 0.5 MG Carbidopa/Levodopa (Sinemet 25/ 100MG Tab) 1 tab HS PO 07/17/16 21:00 08/16/16 20:59 07/20/16 20:53 1 TAB Diclofenac Sodium (Voltaren 1% Top Gel) 1 appln TID PRN EXT 07/17/16 16:15 08/16/16 16:14 Docusate Sodium (coLACE CAP) 100 mg BID PO 07/17/16 21:00 08/16/16 20:59 07/21/16 08:05 100 MG Erythromycin (Erythromycin Oph Oint) 1 appln HS OPB 07/17/16 21:00 07/27/16 20:59 07/20/16 20:55 1 APPLN Ferrous Sulfate (Feosol Tab) 325 mg BIDM PO 07/17/16 17:53 08/16/16 17:59 07/21/16 08:06 325 MG Fluticasone Propionate (Flonase Nasal [place]) 1 sprays DAILY NA 07/18/16 09:00 08/17/16 08:59 07/21/16 08:08 1 SPRAYS Gabapentin (Neurontin Cap) 100 mg DAILY@1200 PO 07/18/16 12:00 08/17/16 11:59 07/21/16 11:40 100 MG Gabapentin (Neurontin Cap) 300 mg BID PO 07/17/16 21:00 08/16/16 20:59 07/21/16 08:07 300 MG Guaifenesin (Mucinex Contr Rel Tab) 600 mg Q12 PRN PO 07/17/16 16:15 08/16/16 16:14 07/18/16 08:00 600 MG Hydrocodone Bit/ Homatropine Methylb (Hycodan Syrup) 5 ml Q4H PRN PO 07/17/16 16:15 07/31/16 16:14 07/20/16 22:22 5 ML Magnesium Oxide (Mag-Ox Tab) 400 mg TID PO 07/17/16 21:00 08/16/16 20:59 07/21/16 13:21 400 MG Megestrol Acetate (Megace Susp) 400 mg BID PO 07/17/16 21:00 08/16/16 20:59 07/21/16 08:08 400 MG Metoprolol Tartrate (Lopressor Tab) 12.5 mg DAILY PO 07/18/16 09:00 08/17/16 08:59 07/21/16 08:05 12.5 MG Multivitamins (Multivitamin Tab) 1 tab DAILY PO 07/18/16 09:00 08/17/16 08:59 07/21/16 08:06 1 TAB Oxycodone/ Acetaminophen (Percocet 5-325MG Tab) 1 tab Q12 PRN PO 07/17/16 16:15 07/31/16 16:14 Prednisone (PredniSONE TAB) 10 mg DAILY PO 07/18/16 09:00 08/17/16 08:59 07/21/16 08:05 10 MG Rivaroxaban (Xarelto Tab) 15 mg QDD PO 07/17/16 16:45 08/16/16 16:44 07/20/16 15:44 15 MG Ropinirole HCl (Requip Tab) 3 mg TID PO 07/17/16 21:00 08/16/16 20:59 07/21/16 13:21 3 MG Tramadol HCl (Ultram Tab) 50 mg Q6 PO 07/17/16 18:00 08/16/16 17:59 07/21/16 11:42 50 MG Vitamin B Complex (Vitamin B Complex) 1 tab DAILY PO 07/18/16 09:00 08/17/16 08:59 07/21/16 08:07 1 TAB Hydralazine HCl (HydrALAZINE INJ) 10 mg Q4 PRN IV. 07/17/16 16:15 08/16/16 16:14 07/19/16 14:20 10 MG Insulin Aspart (novoLOG ASPART) SLIDING SCALE If C... ACHS SC 07/17/16 21:00 08/16/16 20:59 07/21/16 12:10 2 UNITS Glucose (Glucose 40% Gel) 15-30 GRAMS 15 GRAMS... UD PRN PO 07/17/16 16:15 08/16/16 16:14 Glucose (Glucose Chew Tab) 4-8 Tablets 4 Tabl... UD PRN PO 07/17/16 16:15 08/16/16 16:14 Dextrose (Dextrose 50% 50ML Syringe) 25-50ML OF 50% DW IV FOR... UD PRN IV 07/17/16 16:15 08/16/16 16:14 Glucagon (Glucagon Inj) 1 mg UD PRN SQ 07/17/16 16:15 08/16/16 16:14 Albuterol/ Ipratropium (Duoneb) 3 ml QIDR INH 07/17/16 20:00 08/16/16 19:59 07/21/16 07:30 3 ML Miscellaneous Information (Order Awaiting Action) 1 ea QS N/A 07/18/16 00:00 08/17/16 00:00 Nitroglycerin (Nitroglycerin 2% Oint) 1 inch Q6 EXT 07/18/16 00:00 08/17/16 00:00 07/21/16 11:40 1 INCH Lactobacillus Acidophilus (Lactinex Granules Pack) 1 gm TIDM PO 07/18/16 16:45 08/17/16 16:44 07/21/16 11:39 1 GM Guaifenesin 600 mg 600 mg Q12 PO 07/18/16 21:00 08/17/16 20:59 07/21/16 08:08 600 MG Imipenem/ Cilastatin Sodium 250 mg/Dextrose 110 ml @ 100 mls/hr Q6H IV 07/20/16 10:00 07/30/16 09:44 07/21/16 09:48 100 MLS/HR Sodium Chloride (Nss 1000ml) 1,000 ml @ 50 mls/hr Q20H IV 07/20/16 10:00 08/19/16 09:59 07/20/16 10:22 50 MLS/HR Objective Vital Signs Date Time Temp Pulse Resp B/P Pulse Ox O2 Delivery O2 Flow Rate FiO2 07/21/16 12:00 Nasal Cannula 2.0 07/21/16 11:10 66 18 96 Nasal Cannula 2.0 07/21/16 10:54 36.8 63 26 147/55 97 Nasal Cannula 2.0 07/21/16 08:00 Nasal Cannula 2.0 07/21/16 07:43 36.7 82 22 162/72 95 2.0 07/21/16 07:30 96 18 95 Nasal Cannula 2.0 07/21/16 04:19 36.7 70 20 138/64 93 Nasal Cannula 2.0 07/21/16 04:00 Nasal Cannula 2.0 07/20/16 23:59 Nasal Cannula 2.0 07/20/16 23:58 36.7 65 18 125/67 99 Nasal Cannula 2.0 07/20/16 20:04 62 16 93 Nasal Cannula 2.0 07/20/16 20:00 Nasal Cannula 2.0 07/20/16 19:00 36.5 65 26 137/67 100 Nasal Cannula 2.0 07/20/16 16:00 Nasal Cannula 2.0 07/20/16 15:29 36.6 62 22 131/65 94 Nasal Cannula 2.0 Physical Exam General Appearance: no apparent distress Eyes: normal inspection, PERRL, EOMI ENT: normal ENT inspection, hearing grossly normal Neck: supple Respiratory/Chest: + decreased breath sounds, + crackles, + rales Cardiovascular: regular rate, rhythm, no gallop, no JVD, no murmur Abdomen: normal bowel sounds, non tender, soft, + mass Extremities: normal range of motion, non-tender, normal inspection 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, no motor/sensory deficits, + disoriented Skin: normal color, warm/dry, no rash Laboratory Results Last 24 Hours Test 07/20/16 16:16 07/20/16 20:31 07/21/16 06:25 07/21/16 06:55 Bedside Glucose 109 mg/dl 170 mg/dl 127 mg/dl White Blood Count 6.97 K/uL Red Blood Count 3.63 M/uL Hemoglobin 10.8 g/dL Hematocrit 34.1 % Mean Corpuscular Volume 93.9 fL Mean Corpuscular Hemoglobin 29.8 pg Mean Corpuscular Hemoglobin Concent 31.7 g/dl Platelet Count 219 K/uL Mean Platelet Volume 11.0 fL Neutrophils (%) (Auto) 67.3 % Lymphocytes (%) (Auto) 24.4 % Monocytes (%) (Auto) 7.3 % Eosinophils (%) (Auto) 0.3 % Basophils (%) (Auto) 0.1 % Neutrophils # (Auto) 4.69 K/uL Lymphocytes # (Auto) 1.70 K/uL Monocytes # (Auto) 0.51 K/uL Eosinophils # (Auto) 0.02 K/uL Basophils # (Auto) 0.01 K/uL RDW Standard Deviation 50.4 fL RDW Coefficient of Variation 14.7 % Immature Granulocyte % (Auto) 0.6 % Immature Granulocyte # (Auto) 0.04 K/uL Sodium Level 142 mmol/L Potassium Level 3.9 mmol/L Chloride Level 102 mmol/L Carbon Dioxide Level 31 mmol/L Anion Gap 9.0 mmol/L Blood Urea Nitrogen 32 mg/dl Creatinine 1.20 mg/dl Est Creatinine Clear Calc Drug Dose 36.5 ml/min Estimated GFR () 47.7 Estimated GFR (Non- 41.2 BUN/Creatinine Ratio 26.8 Random Glucose 98 mg/dl Calcium Level 8.9 mg/dl Phosphorus Level 2.0 mg/dl Magnesium Level 2.9 mg/dl Test 07/21/16 10:51 Bedside Glucose 124 mg/dl Assessment and Plan Pt is a 85 yo female who presents from the [facility] with shortness of breath, altered mental status Acute hypoxic respiratory failure / Shortness of breath Multi factorial; pleural effusion, bronchitis, Obesity hypoventilation syndrome. continue holding lasix 40 mg IV daily as creatinine pumped from 0.9 to 1.5 then dropped to 1.2 which in her age is significant CXR 07/17/15 noted (bilateral pleural effusions) continue on oxygen as well as duoneb treatments will order swallow evaluation as I suspect aspiration ECHO. was revied: * 1. Normal LV size. Normal LV wall thickness. * 2. Normal LV systolic function. LVEF 55-60 %. Technically limited study, cannot rule out regional motion abnormalities. * 3. Normal RV size and function. * 4. Mild aortic sclerosis without significant stenosis * 5. Grade 1 diastolic dysfunction * 6. Compared with prior study on 03/06/2015: No significant change Acute bronchitis/UTI continue guaifenesin incentive spirometry Chest PT Encephalopathy - likely secondary to above vs hypertensive in etiology. improved cont Lopressor and hydralazine UTI present on admission Urine Cx growing E coli ESBL DC levofloxacin start imipenem CHRISTIE likely from over diuresis DC lasix gentle fluid hydration improving Hx of atrial fibrillation - currently in sinus, cont xarelto Iron deficiency anemia - At baseline, cont iron supp Chronic kidney disease stage 3 - Creatinine at baseline. Will continue to monitor with daily PRPs. Obesity hypoventilation syndrome - Will continue outpatient regimen, nebulizer treatment, and oxygen. Obesity with BMI of 30 Type 2 diabetes - Cont on diabetic diet and ISS. Will check HgA1c DVT ppx with anuel felt a possible mass in her abdomen during palpation will get US abdomen
[2016-07-21] MEDS: RIVAROXABAN TAB 15 MG TAB PO SCH (18:05)
[2016-07-21] MEDS: ERYTHROMYCIN OP OINT 5 MG/GM 3.5 GM TUBE OPB SCH (21:57)
[2016-07-21] MEDS: CARBIDOPA/LEVODOPA 25/100MG TAB PO SCH (21:59)
[2016-07-21] MEDS: ATORVASTATIN 10 MG TAB PO SCH (22:01)
[2016-07-22] VITALS (9 sets, daily range): BP systolic 114–157; BP diastolic 64–92; PULSE 64–75; TEMP 36.6–37; O2SAT 94–100
[2016-07-22] MEDS: NITROGLYCERIN OINT 2% 1GM PACKET EXT SCH ×4 (00:08→17:36)
[2016-07-22] MEDS: SODIUM CHLORIDE 0.9% 1000ML 1,000 ML IV SCH (02:08)
--- NOTE | 2016-07-22 03:20 | Progress Note ---
Progress Note RESIDENT NIGHT CALL [employer] IV site blew, IV team had 4 attempts to put it in again and pt requested it to be stopped Was due for Imipenem dose #8 for E Coli UTI and NSS 50mL/hour, received 2 bags Steve r/v with Pharmacy - can change to PO Macrobid (culture resistant to cephalosporins) PLAN: - Changed to Macrobid 100mg BID - IV fluids stopped for now
[2016-07-22] MEDS: TRAMADOL HCL 50 MG TAB PO SCH ×4 (06:00→17:36)
[2016-07-22 06:30] LABS: BASO % 0.2 %; BASO ABS # 0.01 K/uL (0-0.2); COMPLETE YES; EOS % 0.2 %; HEMATOCRIT 33.5 % (37-47); IG% 1.2 %; LYMPH % 26.2 %; LYMPH ABS # 1.56 K/uL (1.2-3.4); MEAN CELL VOLUME 93.3 fL (80-100); MEAN CORPUSCULAR HEMOGLOBIN 29.5 pg (25-34); MEAN CORPUSCULAR HGB CONC 31.6 g/dl (32-36); MEAN PLATELET VOLUME 11.1 fL (7.4-10.4); MONO % 6.7 %; NEUT % 65.5 %; PLATELET COUNT 211 K/uL (130-400); RED BLOOD COUNT 3.59 M/uL (4.2-5.4); WHITE BLOOD COUNT 5.96 K/uL (4.8-10.8)
[2016-07-22 06:57] LABS: BUN/CREATININE RATIO 26.5 (10-20); CALCIUM 8.7 mg/dl (8.5-10.1); CREATININE 1.1 mg/dl (0.60-1.20); POTASSIUM 4.4 mmol/L (3.5-5.1)
[2016-07-22] MEDS: MAGNESIUM OXIDE 400 MG TAB PO SCH ×3 (07:19→20:15)
[2016-07-22] MEDS: ALBUT/IPRATROP 3MG/0.5MG NEB 3 ML VIAL INH SCH ×4 (07:51→19:37)
[2016-07-22] MEDS ORDERED: NITROFURANTOIN MONOHYDRATE 100 MG CAP PO SCH (08:00)
--- NOTE | 2016-07-22 08:47 | DIAGNOSTIC IMAGING REPORT ---
ABDOMINAL ULTRASOUND COMPLETE HISTORY: palpating mass in abdomen. COMPARISON: Abdomen and pelvis CT 03/07/2015. FINDINGS: Pancreas: Obscured by overlying bowel gas. Liver: Unremarkable. Gallbladder: There are few gallstones. No definite gallbladder wall thickening. The gallbladder wall measures between 2 and 3 mm. CBD: 6 mm. Kidneys: No hydronephrosis. Spleen: Normal in size. Aorta: Obscured by overlying bowel gas. IVC: Obscured by overlying bowel gas. IMPRESSION: 1. Cholelithiasis. No definite gallbladder wall thickening. 2. Normal caliber common bile measures 6 mm. 3. The midline structures including the pancreas, aorta, and IVC were obscured by overlying bowel gas. Electronically signed by: Dima Coon M.D. 07/22/2016 8:45 AM Dictated Date/Time: 07/22/2016 8:43 AM
[2016-07-22] MEDS: MULTIVITAMIN TAB PO SCH (09:31)
[2016-07-22] MEDS: MEGESTROL ACETATE 400 MG/10 ML UDP PO SCH ×2 (09:31→20:16)
[2016-07-22] MEDS: ROPINIROLE HCL 1 MG TAB PO SCH ×3 (09:31→20:15)
[2016-07-22] MEDS: VITAMIN B COMPLEX TAB PO SCH (09:32)
[2016-07-22] MEDS: GUAIFENESIN 600 MG TABCR PO SCH ×2 (09:32→20:14)
[2016-07-22] MEDS: FERROUS SULFATE 325 MG TAB PO SCH ×2 (09:33→15:47)
[2016-07-22] MEDS: GABAPENTIN 300 MG CAP PO SCH ×2 (09:33→20:13)
[2016-07-22] MEDS: METOPROLOL TARTRATE 25 MG TAB PO SCH (09:33)
[2016-07-22] MEDS: DOCUSATE SODIUM 100 MG CAP PO SCH ×2 (09:33→20:17)
[2016-07-22] MEDS: LACTOBACILLUS ACIDOPHILUS 1 GM PACK PO SCH ×3 (09:34→15:47)
[2016-07-22] MEDS: FLUTICASONE PROPIONATE NA SPR 16 GM BTL SCH (09:34)
[2016-07-22] MEDS: RESTASIS-ORDER AWAITING ACTION SCH ×2 (09:34→15:26)
[2016-07-22] MEDS: ALLOPURINOL 100 MG TAB PO SCH ×2 (09:34→20:16)
[2016-07-22] MEDS: INSULIN ASPART 100 UNITS/ML 3 ML PEN SC SCH ×4 (09:35→21:43)
[2016-07-22] MEDS: GABAPENTIN 100 MG CAP PO SCH (11:50)
--- NOTE | 2016-07-22 14:59 | Progress Note ---
Subjective Date of Service: Jul 22, 2016. Subjective Pt evaluation today including: conversation w/ patient, conversation w/ family , physical exam, chart review, lab review, review of inpatient medication list Problem List Medical Problems: (1) CVA (cerebral vascular accident) Status: Acute (2) Hypoxia Status: Acute (3) Pulmonary edema Status: Acute (4) Respiratory distress Status: Acute (5) Viral syndrome Status: Acute Review of Systems she is confused and ROS is unobtainable but denied any pain Objective Vital Signs Date Time Temp Pulse Resp B/P Pulse Ox O2 Delivery O2 Flow Rate FiO2 07/22/16 11:52 64 131/72 07/22/16 11:32 74 18 100 Nasal Cannula 2.0 07/22/16 08:00 Nasal Cannula 2.0 07/22/16 07:51 66 18 100 Nasal Cannula 2.0 07/22/16 07:28 36.7 66 20 149/64 98 Nasal Cannula 2.0 07/22/16 00:12 37.0 66 16 114/92 94 2.0 07/22/16 00:00 Nasal Cannula 2.0 07/21/16 22:43 36.8 67 16 125/68 95 Nasal Cannula 2.0 07/21/16 20:40 71 16 95 Nasal Cannula 2.0 07/21/16 17:50 98 Room Air 07/21/16 16:30 36.8 68 18 171/64 98 Room Air 2.0 07/21/16 15:38 36.7 65 20 143/64 97 Nasal Cannula 2.0 07/21/16 15:37 Nasal Cannula 2.0 07/21/16 15:36 63 18 96 Nasal Cannula 2.0 Physical Exam General Appearance: no apparent distress Eyes: normal inspection, PERRL, EOMI ENT: normal ENT inspection, hearing grossly normal Neck: supple Respiratory/Chest: chest non-tender, no respiratory distress, no accessory muscle use, + decreased breath sounds, + crackles Cardiovascular: regular rate, rhythm, no edema, no murmur Abdomen: normal bowel sounds, non tender, soft Extremities: normal range of motion, non-tender, normal inspection 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 nml as tested, no motor/sensory deficits, alert, + disoriented Skin: normal color, warm/dry, no rash Laboratory Results Last 24 Hours Test 07/21/16 16:55 07/21/16 20:04 07/22/16 05:45 07/22/16 07:56 Bedside Glucose 130 mg/dl 157 mg/dl 110 mg/dl White Blood Count 5.96 K/uL Red Blood Count 3.59 M/uL Hemoglobin 10.6 g/dL Hematocrit 33.5 % Mean Corpuscular Volume 93.3 fL Mean Corpuscular Hemoglobin 29.5 pg Mean Corpuscular Hemoglobin Concent 31.6 g/dl Platelet Count 211 K/uL Mean Platelet Volume 11.1 fL Neutrophils (%) (Auto) 65.5 % Lymphocytes (%) (Auto) 26.2 % Monocytes (%) (Auto) 6.7 % Eosinophils (%) (Auto) 0.2 % Basophils (%) (Auto) 0.2 % Neutrophils # (Auto) 3.91 K/uL Lymphocytes # (Auto) 1.56 K/uL Monocytes # (Auto) 0.40 K/uL Eosinophils # (Auto) 0.01 K/uL Basophils # (Auto) 0.01 K/uL RDW Standard Deviation 49.6 fL RDW Coefficient of Variation 14.6 % Immature Granulocyte % (Auto) 1.2 % Immature Granulocyte # (Auto) 0.07 K/uL Sodium Level 142 mmol/L Potassium Level 4.4 mmol/L Chloride Level 104 mmol/L Carbon Dioxide Level 30 mmol/L Anion Gap 8.0 mmol/L Blood Urea Nitrogen 29 mg/dl Creatinine 1.10 mg/dl Est Creatinine Clear Calc Drug Dose 39.9 ml/min Estimated GFR () 53.0 Estimated GFR (Non- 45.7 BUN/Creatinine Ratio 26.5 Random Glucose 103 mg/dl Calcium Level 8.7 mg/dl Magnesium Level 3.0 mg/dl Test 07/22/16 11:48 Bedside Glucose 128 mg/dl Assessment and Plan Pt is a 85 yo female who presents from the [facility] with shortness of breath, altered mental status Acute hypoxic respiratory failure / Shortness of breath , improved Multi factorial; pleural effusion, bronchitis, Obesity hypoventilation syndrome. continue holding lasix 40 mg IV daily as creatinine pumped from 0.9 to 1.5 then dropped to 1.2 which in her age is significant CXR 07/17/15 noted (bilateral pleural effusions) continue on oxygen as well as duoneb treatments will order swallow evaluation as I suspect aspiration, awaiting swallow eval ECHO. was revied: * 1. Normal LV size. Normal LV wall thickness. * 2. Normal LV systolic function. LVEF 55-60 %. Technically limited study, cannot rule out regional motion abnormalities. * 3. Normal RV size and function. * 4. Mild aortic sclerosis without significant stenosis * 5. Grade 1 diastolic dysfunction * 6. Compared with prior study on 03/06/2015: No significant change Acute bronchitis/UTI continue guaifenesin incentive spirometry Chest PT Encephalopathy - likely secondary to above vs hypertensive in etiology. improved cont Lopressor and hydralazine UTI present on admission Urine Cx growing E coli ESBL DC levofloxacin restart imipenem, increase dose / interrupted when she lost her IV access ordered a midline, D/W daughter who consentes CHRISTIE, resolved likely from over diuresis DC lasix gentle fluid hydration improving Hx of atrial fibrillation - currently in sinus, cont xarelto Iron deficiency anemia - At baseline, cont iron supp Chronic kidney disease stage 3 - Creatinine at baseline. Will continue to monitor with daily PRPs. Obesity hypoventilation syndrome - Will continue outpatient regimen, nebulizer treatment, and oxygen. Obesity with BMI of 30 Type 2 diabetes - Cont on diabetic diet and ISS. Will check HgA1c DVT ppx with anuel felt a possible mass in her abdomen during palpation will get US abdomen
[2016-07-22] MEDS: RIVAROXABAN TAB 15 MG TAB PO SCH (15:47)
[2016-07-22] MEDS ORDERED: IMIPENEM/CILASTATIN IV 500 MG in DEXTROSE 5% 100ML 100 ML IV SCH (16:00)
[2016-07-22] MEDS: BUDESONIDE 0.5 MG/2 ML VIAL (PULMICORT) INH SCH (19:37)
[2016-07-22] MEDS: ATORVASTATIN 10 MG TAB PO SCH (21:39)
[2016-07-22] MEDS: CARBIDOPA/LEVODOPA 25/100MG TAB PO SCH (21:39)
[2016-07-22] MEDS: ERYTHROMYCIN OP OINT 5 MG/GM 3.5 GM TUBE OPB SCH (21:39)
[2016-07-23] VITALS (10 sets, daily range): BP systolic 122–162; BP diastolic 64–79; PULSE 61–76; TEMP 36.5–36.9; O2SAT 94–98
[2016-07-23] MEDS: RESTASIS-ORDER AWAITING ACTION SCH
[2016-07-23] MEDS: TRAMADOL HCL 50 MG TAB PO SCH ×4 (00:39→18:08)
[2016-07-23] MEDS: NITROGLYCERIN OINT 2% 1GM PACKET EXT SCH ×4 (00:39→18:00)
[2016-07-23] MEDS: IMIPENEM/CILASTATIN IV 500 MG in DEXTROSE 5% 100ML 100 ML IV SCH ×3 (04:24→20:48)
[2016-07-23] MEDS: INSULIN ASPART 100 UNITS/ML 3 ML PEN SC SCH ×4 (06:30→21:01)
[2016-07-23] MEDS: ROPINIROLE HCL 1 MG TAB PO SCH ×3 (08:06→20:53)
[2016-07-23] MEDS: MULTIVITAMIN TAB PO SCH (08:06)
[2016-07-23] MEDS: MAGNESIUM OXIDE 400 MG TAB PO SCH ×3 (08:06→20:58)
[2016-07-23] MEDS: DOCUSATE SODIUM 100 MG CAP PO SCH ×2 (08:07→20:58)
[2016-07-23] MEDS: FERROUS SULFATE 325 MG TAB PO SCH ×2 (08:07→18:06)
[2016-07-23] MEDS: GABAPENTIN 300 MG CAP PO SCH ×2 (08:07→20:51)
[2016-07-23] MEDS: MEGESTROL ACETATE 400 MG/10 ML UDP PO SCH ×2 (08:08→20:53)
[2016-07-23] MEDS: VITAMIN B COMPLEX TAB PO SCH (08:08)
[2016-07-23] MEDS: METOPROLOL TARTRATE 25 MG TAB PO SCH (08:09)
[2016-07-23] MEDS: GUAIFENESIN 600 MG TABCR PO SCH ×2 (08:09→20:52)
[2016-07-23] MEDS: LACTOBACILLUS ACIDOPHILUS 1 GM PACK PO SCH ×3 (08:09→17:00)
[2016-07-23 08:10] LABS: MEAN CELL VOLUME 94.3 fL (80-100); MEAN CORPUSCULAR HEMOGLOBIN 30.2 pg (25-34); MEAN PLATELET VOLUME 11.1 fL (7.4-10.4); PLATELET COUNT 226 K/uL (130-400); RED BLOOD COUNT 3.71 M/uL (4.2-5.4); WHITE BLOOD COUNT 6.14 K/uL (4.8-10.8)
[2016-07-23] MEDS: FLUTICASONE PROPIONATE NA SPR 16 GM BTL SCH (08:10)
[2016-07-23 08:11] LABS: BASO % 0.3 %; BASO ABS # 0.02 K/uL (0-0.2); COMPLETE YES; EOS % 0.2 %; IG% 0.7 %; LYMPH % 21.3 %; LYMPH ABS # 1.31 K/uL (1.2-3.4); MONO % 7.3 %; NEUT % 70.2 %
[2016-07-23] MEDS: ALLOPURINOL 100 MG TAB PO SCH ×2 (08:11→20:59)
[2016-07-23 08:14] LABS: BUN/CREATININE RATIO 28.7 (10-20); CALCIUM 8.8 mg/dl (8.5-10.1); CREATININE 0.92 mg/dl (0.60-1.20); MAGNESIUM 2.9 mg/dl (1.8-2.4); PHOSPHORUS 2.5 mg/dl (2.5-4.9); POTASSIUM 4.3 mmol/L (3.5-5.1)
[2016-07-23] MEDS: ALBUT/IPRATROP 3MG/0.5MG NEB 3 ML VIAL INH SCH ×4 (08:29→20:17)
[2016-07-23] MEDS: BUDESONIDE 0.5 MG/2 ML VIAL (PULMICORT) INH SCH (08:30)
[2016-07-23] MEDS: GABAPENTIN 100 MG CAP PO SCH (14:42)
[2016-07-23] MEDS: RIVAROXABAN TAB 15 MG TAB PO SCH (18:06)
--- NOTE | 2016-07-23 18:33 | Progress Note ---
Subjective Date of Service: Jul 23, 2016. Subjective Pt evaluation today including: conversation w/ patient, physical exam, chart review, lab review Problem List Medical Problems: (1) CVA (cerebral vascular accident) Status: Acute (2) Hypoxia Status: Acute (3) Pulmonary edema Status: Acute (4) Respiratory distress Status: Acute (5) Viral syndrome Status: Acute Review of Systems confused ROS was unobtainable but she was able to deny any pain Medications Current Inpatient Medications Medications (Trade) Dose Ordered Sig/Jaquelin Route Start Time Stop Time Status Last Admin Dose Admin Acetaminophen (Tylenol Tab) 650 mg Q4H PRN PO 07/17/16 16:00 08/16/16 15:59 Al Hydrox/Mg Hydrox/Simethicone (Maalox Max Susp) 15 ml Q4H PRN PO 07/17/16 16:00 08/16/16 15:59 Ondansetron HCl (Zofran Inj) 4 mg Q6H PRN IV 07/17/16 16:00 08/16/16 15:59 Allopurinol (Zyloprim Tab) 100 mg Q12 PO 07/17/16 21:00 08/16/16 20:59 07/23/16 08:11 100 MG Atorvastatin Calcium (Lipitor Tab) 10 mg HS PO 07/17/16 21:00 08/16/16 20:59 07/22/16 21:39 10 MG Budesonide (Pulmicort Respules 0.5MG/ 2ML Neb Soln) 0.5 mg Q12 INH 07/17/16 21:00 08/16/16 20:59 07/23/16 08:30 0.5 MG Carbidopa/Levodopa (Sinemet 25/ 100MG Tab) 1 tab HS PO 07/17/16 21:00 08/16/16 20:59 07/22/16 21:39 1 TAB Diclofenac Sodium (Voltaren 1% Top Gel) 1 appln TID PRN EXT 07/17/16 16:15 08/16/16 16:14 Docusate Sodium (coLACE CAP) 100 mg BID PO 07/17/16 21:00 08/16/16 20:59 07/23/16 08:07 100 MG Erythromycin (Erythromycin Oph Oint) 1 appln HS OPB 07/17/16 21:00 07/27/16 20:59 07/22/16 21:39 1 APPLN Ferrous Sulfate (Feosol Tab) 325 mg BIDM PO 07/17/16 17:53 08/16/16 17:59 07/23/16 08:07 325 MG Fluticasone Propionate (Flonase Nasal [place]) 1 sprays DAILY NA 07/18/16 09:00 08/17/16 08:59 07/23/16 08:10 1 SPRAYS Gabapentin (Neurontin Cap) 100 mg DAILY@1200 PO 07/18/16 12:00 08/17/16 11:59 07/23/16 14:42 100 MG Gabapentin (Neurontin Cap) 300 mg BID PO 07/17/16 21:00 08/16/16 20:59 07/23/16 08:07 300 MG Guaifenesin (Mucinex Contr Rel Tab) 600 mg Q12 PRN PO 07/17/16 16:15 08/16/16 16:14 07/18/16 08:00 600 MG Hydrocodone Bit/ Homatropine Methylb (Hycodan Syrup) 5 ml Q4H PRN PO 07/17/16 16:15 07/31/16 16:14 07/20/16 22:22 5 ML Magnesium Oxide (Mag-Ox Tab) 400 mg TID PO 07/17/16 21:00 08/16/16 20:59 07/23/16 14:43 400 MG Megestrol Acetate (Megace Susp) 400 mg BID PO 07/17/16 21:00 08/16/16 20:59 07/23/16 08:08 400 MG Metoprolol Tartrate (Lopressor Tab) 12.5 mg DAILY PO 07/18/16 09:00 08/17/16 08:59 07/23/16 08:09 12.5 MG Multivitamins (Multivitamin Tab) 1 tab DAILY PO 07/18/16 09:00 08/17/16 08:59 07/23/16 08:06 1 TAB Oxycodone/ Acetaminophen (Percocet 5-325MG Tab) 1 tab Q12 PRN PO 07/17/16 16:15 07/31/16 16:14 Prednisone (PredniSONE TAB) 10 mg DAILY PO 07/18/16 09:00 08/17/16 08:59 07/23/16 08:33 10 MG Rivaroxaban (Xarelto Tab) 15 mg QDD PO 07/17/16 16:45 08/16/16 16:44 07/22/16 15:47 15 MG Ropinirole HCl (Requip Tab) 3 mg TID PO 07/17/16 21:00 08/16/16 20:59 07/23/16 14:42 3 MG Tramadol HCl (Ultram Tab) 50 mg Q6 PO 07/17/16 18:00 08/16/16 17:59 07/23/16 14:45 50 MG Vitamin B Complex (Vitamin B Complex) 1 tab DAILY PO 07/18/16 09:00 08/17/16 08:59 07/23/16 08:08 1 TAB Hydralazine HCl (HydrALAZINE INJ) 10 mg Q4 PRN IV. 07/17/16 16:15 08/16/16 16:14 07/19/16 14:20 10 MG Insulin Aspart (novoLOG ASPART) SLIDING SCALE If C... ACHS SC 07/17/16 21:00 08/16/16 20:59 07/22/16 21:43 1 UNITS Glucose (Glucose 40% Gel) 15-30 GRAMS 15 GRAMS... UD PRN PO 07/17/16 16:15 08/16/16 16:14 Glucose (Glucose Chew Tab) 4-8 Tablets 4 Tabl... UD PRN PO 07/17/16 16:15 08/16/16 16:14 Dextrose (Dextrose 50% 50ML Syringe) 25-50ML OF 50% DW IV FOR... UD PRN IV 07/17/16 16:15 08/16/16 16:14 Glucagon (Glucagon Inj) 1 mg UD PRN SQ 07/17/16 16:15 08/16/16 16:14 Albuterol/ Ipratropium (Duoneb) 3 ml QIDR INH 07/17/16 20:00 08/16/16 19:59 07/23/16 15:31 3 ML Miscellaneous Information (Order Awaiting Action) 1 ea QS N/A 07/18/16 00:00 08/17/16 00:00 Nitroglycerin (Nitroglycerin 2% Oint) 1 inch Q6 EXT 07/18/16 00:00 08/17/16 00:00 07/23/16 14:39 1 INCH Lactobacillus Acidophilus (Lactinex Granules Pack) 1 gm TIDM PO 07/18/16 16:45 08/17/16 16:44 07/23/16 14:42 1 GM Guaifenesin 600 mg 600 mg Q12 PO 07/18/16 21:00 08/17/16 20:59 07/23/16 08:09 600 MG Imipenem/ Cilastatin Sodium/ Dextrose (Primaxin Iv/D5 100ml) 110 ml @ 100 mls/hr Q8H IV 07/23/16 00:00 08/02/16 00:00 07/23/16 14:36 100 MLS/HR Heparin Sodium (Porcine) (Heparin 10 Unit/ ml 5 ml Flush) 5 ml PRN PRN FLUSH 07/23/16 12:45 08/22/16 12:44 Objective Vital Signs Date Time Temp Pulse Resp B/P Pulse Ox O2 Delivery O2 Flow Rate FiO2 07/23/16 16:31 36.7 70 18 122/79 94 Nasal Cannula 1.0 07/23/16 15:31 61 18 96 Nasal Cannula 1.0 07/23/16 11:20 76 18 94 Nasal Cannula 2.0 07/23/16 08:30 63 18 98 Nasal Cannula 2.0 07/23/16 08:00 96 Nasal Cannula 2.0 07/23/16 07:49 36.5 67 18 146/64 96 Room Air 07/23/16 05:50 64 162/77 07/22/16 23:59 Nasal Cannula 2.0 07/22/16 23:54 36.6 69 18 148/86 94 07/22/16 19:38 75 18 95 Nasal Cannula 2.0 Physical Exam General Appearance: no apparent distress Eyes: normal inspection, PERRL, EOMI ENT: normal ENT inspection, hearing grossly normal Neck: supple Respiratory/Chest: chest non-tender, lungs clear, normal breath sounds, no respiratory distress, no accessory muscle use Cardiovascular: regular rate, rhythm, no edema, + systolic murmur, + gallop/S3 Abdomen: normal bowel sounds, non tender, soft Extremities: normal range of motion, non-tender, normal inspection, no pedal edema Neurologic/Psychiatric: panel lay up worker II-XII nml as tested, no motor/sensory deficits, alert, + disoriented Skin: normal color, warm/dry, no rash Laboratory Results Last 24 Hours Test 07/22/16 20:11 07/23/16 07:00 07/23/16 07:57 07/23/16 12:58 Bedside Glucose 160 mg/dl 97 mg/dl 106 mg/dl White Blood Count 6.14 K/uL Red Blood Count 3.71 M/uL Hemoglobin 11.2 g/dL Hematocrit 35.0 % Mean Corpuscular Volume 94.3 fL Mean Corpuscular Hemoglobin 30.2 pg Mean Corpuscular Hemoglobin Concent 32.0 g/dl Platelet Count 226 K/uL Mean Platelet Volume 11.1 fL Neutrophils (%) (Auto) 70.2 % Lymphocytes (%) (Auto) 21.3 % Monocytes (%) (Auto) 7.3 % Eosinophils (%) (Auto) 0.2 % Basophils (%) (Auto) 0.3 % Neutrophils # (Auto) 4.31 K/uL Lymphocytes # (Auto) 1.31 K/uL Monocytes # (Auto) 0.45 K/uL Eosinophils # (Auto) 0.01 K/uL Basophils # (Auto) 0.02 K/uL RDW Standard Deviation 50.5 fL RDW Coefficient of Variation 14.8 % Immature Granulocyte % (Auto) 0.7 % Immature Granulocyte # (Auto) 0.04 K/uL Sodium Level 143 mmol/L Potassium Level 4.3 mmol/L Chloride Level 104 mmol/L Carbon Dioxide Level 30 mmol/L Anion Gap 9.0 mmol/L Blood Urea Nitrogen 26 mg/dl Creatinine 0.92 mg/dl Est Creatinine Clear Calc Drug Dose 47.7 ml/min Estimated GFR () 65.8 Estimated GFR (Non- 56.8 BUN/Creatinine Ratio 28.7 Random Glucose 97 mg/dl Calcium Level 8.8 mg/dl Phosphorus Level 2.5 mg/dl Magnesium Level 2.9 mg/dl Test 07/23/16 16:22 Bedside Glucose 152 mg/dl Assessment and Plan Pt is a 85 yo female who presents from the [facility] with shortness of breath, altered mental status Acute hypoxic respiratory failure / Shortness of breath , improved Multi factorial; pleural effusion, bronchitis, Obesity hypoventilation syndrome. initially started on lasix 40 mg IV daily as creatinine pumped from 0.9 to 1.5 , lasix was stopped and she was started on IV fluids, now creatinine is back to normal and she is off lasix and IVF. CXR 07/17/15 noted (bilateral pleural effusions) continue on oxygen as well as DuoNeb treatments will order swallow evaluation as I suspect aspiration, awaiting swallow eval ECHO. was revied: * 1. Normal LV size. Normal LV wall thickness. * 2. Normal LV systolic function. LVEF 55-60 %. Technically limited study, cannot rule out regional motion abnormalities. * 3. Normal RV size and function. * 4. Mild aortic sclerosis without significant stenosis * 5. Grade 1 diastolic dysfunction * 6. Compared with prior study on 03/06/2015: No significant change Acute bronchitis/UTI continue guaifenesin also on Imipenem incentive spirometry Chest PT Metabolic Encephalopathy - likely secondary to UTI, improved UTI present on admission Urine Cx growing E coli ESBL DC levofloxacin continue imipenem, can be discharged on Ertapenem S/P midline, 07/23 CHRISTIE, resolved, creatinine back to base line likely from over diuresis DC lasix also DC fluid hydration Hx of atrial fibrillation - currently in sinus, cont xarelto Iron deficiency anemia - At baseline, cont iron supp Chronic kidney disease stage 3 - Creatinine at baseline. Will continue to monitor with daily PRPs. Obesity hypoventilation syndrome - Will continue outpatient regimen, nebulizer treatment, and oxygen. Obesity with BMI of 30 Type 2 diabetes - Cont on diabetic diet and ISS. Will check HgA1c DVT ppx with anuel felt a possible mass in her abdomen during palpation US abdomen was negative (most of organs were masked by gas)
[2016-07-23] MEDS: CARBIDOPA/LEVODOPA 25/100MG TAB PO SCH (20:59)
[2016-07-23] MEDS: ATORVASTATIN 10 MG TAB PO SCH (20:59)
[2016-07-23] MEDS: ERYTHROMYCIN OP OINT 5 MG/GM 3.5 GM TUBE OPB SCH (22:29)
[2016-07-24] VITALS (8 sets, daily range): BP systolic 133–174; BP diastolic 57–73; PULSE 57–76; TEMP 36.6; O2SAT 97–100
[2016-07-24] MEDS: RESTASIS-ORDER AWAITING ACTION SCH
[2016-07-24] MEDS: TRAMADOL HCL 50 MG TAB PO SCH ×3 (01:19→12:26)
[2016-07-24] MEDS: NITROGLYCERIN OINT 2% 1GM PACKET EXT SCH ×3 (01:19→12:15)
[2016-07-24] MEDS: IMIPENEM/CILASTATIN IV 500 MG in DEXTROSE 5% 100ML 100 ML IV SCH ×2 (04:08→12:14)
[2016-07-24 05:46] LABS: BASO % 0.1 %; BASO ABS # 0.01 K/uL (0-0.2); COMPLETE YES; EOS % 0.3 %; HEMATOCRIT 35.5 % (37-47); IG% 0.5 %; LYMPH % 25.4 %; MEAN CELL VOLUME 94.4 fL (80-100); MEAN CORPUSCULAR HEMOGLOBIN 29.8 pg (25-34); MEAN CORPUSCULAR HGB CONC 31.5 g/dl (32-36); MEAN PLATELET VOLUME 10.5 fL (7.4-10.4); MONO % 6.2 %; NEUT % 67.5 %; PLATELET COUNT 269 K/uL (130-400); RED BLOOD COUNT 3.76 M/uL (4.2-5.4); WHITE BLOOD COUNT 7.86 K/uL (4.8-10.8)
[2016-07-24 06:10] LABS: BUN/CREATININE RATIO 22.7 (10-20); CALCIUM 8.7 mg/dl (8.5-10.1); CREATININE 1.1 mg/dl (0.60-1.20); MAGNESIUM 2.8 mg/dl (1.8-2.4); POTASSIUM 4.5 mmol/L (3.5-5.1)
[2016-07-24 06:13] LABS: ALB/GLOB RATIO 0.7 (0.9-2)
[2016-07-24] MEDS: INSULIN ASPART 100 UNITS/ML 3 ML PEN SC SCH ×2 (06:30→11:00)
[2016-07-24] MEDS: ALBUT/IPRATROP 3MG/0.5MG NEB 3 ML VIAL INH SCH ×3 (07:26→15:38)
[2016-07-24] MEDS: BUDESONIDE 0.5 MG/2 ML VIAL (PULMICORT) INH SCH (07:26)
[2016-07-24] MEDS: MEGESTROL ACETATE 400 MG/10 ML UDP PO SCH (08:08)
[2016-07-24] MEDS: VITAMIN B COMPLEX TAB PO SCH (08:08)
[2016-07-24] MEDS: ROPINIROLE HCL 1 MG TAB PO SCH ×2 (08:08→14:44)
[2016-07-24] MEDS: FLUTICASONE PROPIONATE NA SPR 16 GM BTL SCH (08:08)
[2016-07-24] MEDS: GABAPENTIN 300 MG CAP PO SCH (08:09)
[2016-07-24] MEDS: FERROUS SULFATE 325 MG TAB PO SCH (08:09)
[2016-07-24] MEDS: GUAIFENESIN 600 MG TABCR PO SCH (08:09)
[2016-07-24] MEDS: DOCUSATE SODIUM 100 MG CAP PO SCH (08:09)
[2016-07-24] MEDS: LACTOBACILLUS ACIDOPHILUS 1 GM PACK PO SCH ×2 (08:12→12:00)
[2016-07-24] MEDS: MAGNESIUM OXIDE 400 MG TAB PO SCH ×2 (08:12→14:44)
[2016-07-24] MEDS: MULTIVITAMIN TAB PO SCH (08:12)
[2016-07-24] MEDS: METOPROLOL TARTRATE 25 MG TAB PO SCH (08:12)
[2016-07-24] MEDS: ALLOPURINOL 100 MG TAB PO SCH (08:12)
[2016-07-24] MEDS: GABAPENTIN 100 MG CAP PO SCH (12:16)
[2016-07-24] MEDS ORDERED: ERTA1INJ IV (14:15)
[2016-07-24] MEDS ORDERED: BISA10SU5 PR (14:15)
[2016-07-24] MEDS ORDERED: HYDR5SYP11 PO (14:15)
[2016-07-24] MEDS ORDERED: SENN-65 PO (14:15)
[2016-07-24] MEDS ORDERED: LCTXP PO (14:15)
--- NOTE | 2016-07-24 14:31 | Discharge Instructions ---
Discharge Instructions Admission Admission Date: Jul 17, 2016 at 15:59 Admission Diagnosis: Hypoxia, Respiratory Distress. Discharge Care Plan - Problem: Medical Problems: (1) CVA (cerebral vascular accident) (2) Hypoxia (3) Pulmonary edema (4) Respiratory distress Care Plan - Goal(s): Improve function Care Plan - Instructions: Activity Recommendations: no limitations * Call 911 or immediately go to the Hospital Emergency Department nearest your location if you feel you have an emergent problem. Inpt VTE Proph given/why not?: Other Anticoagulation Laboratory Results Test Results: Hemoglobin A1c Test 07/18/16 05:37 Range/Units Estimated Average Glucose 108 mg/dl Hemoglobin A1c 5.4 4.5-5.6 % Marla Hare Recommendations: Call your doctor if: * Temperature above 101 degrees * Pain not relieved by pain medicine ordered * There is increased drainage or redness from any incision * You have any unanswered questions or concerns. Your Doctors Instructions noted above were prepared by provider Ruth Prater.
[2016-07-24] MEDS ORDERED: ERTAPENEM IV 1 GM in SODIUM CHLOR 0.9% AD-VAN 50ML 50 ML IV ONE (14:45)
--- NOTE | 2016-07-24 14:45 | Discharge Summary ---
Discharge Summary Admission Date: Jul 17, 2016 at 15:59 Discharge Date: Jul 24, 2016 Discharge Disposition: halfway facility Problems/Secondary Diagnoses: Acute hypoxic respiratory failure / Shortness of breath , improved Multi factorial; pleural effusion, bronchitis, Obesity hypoventilation syndrome. Acute bronchitis/URTI Metabolic Encephalopathy - likely secondary to UTI, improved UTI present on admission CHRISTIE, resolved, creatinine back to base line likely from over diuresis Hx of atrial fibrillation - currently in sinus Iron deficiency anemia - At baseline Chronic kidney disease stage 3 - Creatinine at baseline. Obesity hypoventilation syndrome Obesity with BMI of 30 Type 2 diabetes Immunizations: Have You Had Influenza Vaccine: Yes Influenza Vaccine Date: Apr 09, 2013 History of Tetanus Vaccine?: No History of Pneumococcal: Yes Pneumococcal Date: May 06, 2010 History of Hepatitis B Vaccine: No Medication Reconciliation New Medications: Ertapenem Sodium (Invanz) 1 Gm Inj 1 GM IV DAILY for 7 Days, #7 GM Senna/Docusate Sod (Senokot S) 1 Tab Tab 1 TAB PO DAILY for 30 Days, #30 TAB Lactobacillus Acidophilus (Lactinex Granules) 1 Gm Pack 1 GM PO TIDM for 20 Days, #60 GM Continued Medications: Acetaminophen (Tylenol) 325 Mg Tab 650 MG PO Q4H PRN for Pain or Fever NOT TO EXCEED 3 GM APAP/24 HOURS. NEEDED FOR MILD PAIN RATED 1-5 ON A SCALE OF "0-10" OR FOR ELEVATED TEMPERATURE GREATER THAN 101 F. Allopurinol (Zyloprim) 100 Mg Tab 100 MG PO Q12 Atorvastatin (Lipitor) 10 Mg Tab 10 MG PO HS Bisacodyl (Bisacodyl) 10 Mg Sup 1 SUPP SD UD PRN for Constipation for 30 Days, #10 (This prescription has been renewed) NEEDED FOR NO BOWEL MOVEMENT IN 10 SHIFTS IF MOM INEFFECTIVE. TO BE GIVEN AT 0600 HOURS. Budesonide Soln (Pulmicort Respules 0.5MG/2ML) Nebu 2 ML INH Q12 Carbidopa/Levodopa (Sinemet 25MG/100MG) Tab 1 TAB PO HS Cyclosporine (Ophth) (Restasis) 0.05 % Emu 2 DROP OP BID, BTL Dextrose (Diabetic Use) (Insta-Glucose) 77.4 % Gel 1 APPL PO UD PRN for HYPOGLYCEMIA PROTOCOL NEEDED FOR HYPOGLYCEMIA BLOOD GLUCOSE LESS THAN 60 AND/OR SYMPTOMATIC HYPOGLYCEMIA (MUST BE RESPONSIVE AND ABLE TO SAFELY SWALLOW) Diclofenac Sodium (Topical) (Voltaren 1% Top Gel) 1 % Gel 1 DOSE TOP TID PRN for Pain Erythromycin Opth (Erythromycin Opth) 12 Appln/3.5 Gm Oint 1 APPLN OPB HS START ON THE 1ST AND ENDING ON THE 7TH EVERY MONTH FOR CONJUNCTIVITIS. Estradiol Vaginal (Estrace) 0.1 Mg/Gm Cre 0.5 APPL PV 3XWK MON, WED, FRI. Ferrous Sulfate (Ferrous Sulfate) 325 Mg Tab 325 MG PO BIDM for 30 Days, TAB Fluticasone Propionate (Nasal) (Flonase Allergy Relief) 50 Mcg/Act Spr 1 SPRAY NEB DAILY Gabapentin (Neurontin) 100 Mg Cap 100 MG PO DAILY, CAP Gabapentin (Neurontin) 300 Mg Cap 300 MG PO BID, CAP Glucagon (Glucagon Emergency Kit) 1 Mg Kit 1 APPLN IM UD PRN for HYPOGLYCEMIA PROTOCOL NEEDED FOR HYPOCLYCEMIA BLOOD GLUCOSE < 60 AND/OR SYMPTOMATIC / UNRESPONSIVE HYPOGLYCEMIA. MAY REPEAT IN 15 MINUTES IF NEEDED. NOTIFY MD. Guaifenesin Ext Rel (Mucinex Ext Rel) 600 Mg Tabcr 600 MG PO Q12 PRN for COPD, TAB Hydrocodone W/ Homatropine (Hycodan 5/1.5MG 5 Ml) 1 Syp Syp 5 ML PO Q4H PRN for Cough for 30 Days, #600 ML (This prescription has been renewed) Ipratropium-Albuterol (Duoneb) 3 Ml Nebu 1 TREATMENT INH Q4H, INHA WHILE AWAKE. Magnesium Hydroxide (Milk Of Magnesia) 30 Ml Susp 30 ML PO for NO BM X 9 SHIFTS Magnesium Oxide (Mag-Ox) 400 Mg Tab 400 MG PO TID Megestrol Acetate (Megace Oral) 40 Mg/Ml [place] 400 MG PO BID Melatonin (Melatonin Maximum Strengt) 5 Mg Tab 5 MG PO HS, 1 Refill Metoprolol Tartrate (Lopressor) 25 Mg Tab 12.5 MG PO DAILY Multivitamin (Multivitamin) Tab 1 TAB PO DAILY, TAB Oxycodone/Acetaminophen 5MG/325MG (Percocet 5MG/325MG) Tab 1 TABLET PO Q12 PRN for Pain, TAB PAIN Rivaroxaban (Xarelto) 15 Mg Tab 15 MG PO HS Ropinirole (Requip) 3 Mg Tab 3 MG PO TID Sodium Phosphate/Biphosphate (Fleet Enema) Melissa 1 EA SD UD PRN for NO BM 4HR AFTER SUPPOSITORY, BTL Tramadol (Ultram) 50 Mg Tab 50 MG PO Q6 Umeclidinium [place] (Incruse Ellipta) 62.5 Mcg/Inh Inh 1 PUFF PO DAILY Vitamin B Complex (Vitamin B Complex) 1 Tab Tab 1 TAB PO DAILY Discontinued Medications: Azithromycin (Zithromax) 250 Mg Tab 250 MG PO DAILY, #4 TAB X 4 DAYS. STARTED 07/13/16 @ 0800 Azithromycin (Zithromax) 500 Mg Tab 500 MG PO DAILY, #4 TAB Docusate Sodium (Docusate Sodium) 100 Mg Cap 100 MG PO BID for 30 Days, CAP Prednisone (Prednisone) 10 Mg Tab 10 MG PO DAILY X 2 DAYS START 07/16/16 @ 0800 Discharge Exam Review of Systems: Constitutional: + problem reported (ROS was unobtainable due to confusion base line, but denied any pain) Physical Exam: General Appearance: no apparent distress Eyes: normal inspection, PERRL, EOMI ENT: normal ENT inspection, hearing grossly normal Neck: supple Respiratory/Chest: chest non-tender, lungs clear, normal breath sounds, no respiratory distress Cardiovascular: regular rate, rhythm, no edema, + systolic murmur, + gallop/ S3 Abdomen / GI: normal bowel sounds, non tender, soft, no organomegaly, no pulsatile mass Extremities: normal inspection, no calf tenderness, normal capillary refill Neurologic/Psychiatric: alpine patroller II-XII nml as tested, no motor/sensory deficits , alert, + disoriented Skin: normal color, warm/dry, no rash Hospital Course Pt is a 85 yo female who presents from the [facility] with shortness of breath, altered mental status she was found to have Acute hypoxic respiratory failure / Shortness of breath CXR 07/17/15 noted (bilateral pleural effusions) Multi factorial; pleural effusion, bronchitis, Obesity hypoventilation syndrome. initially started on lasix 40 mg IV daily as creatinine pumped from 0.9 to 1.5 , lasix was stopped and she was started on IV fluids, now creatinine is back to normal and she is off lasix and IVF. continued on steroids as well as DuoNeb treatments she has minimal aspiration, D/W daughter, she wants to continue feeding with precautions, puree/Nec thick liquid ECHO. was done, results as below: * 1. Normal LV size. Normal LV wall thickness. * 2. Normal LV systolic function. LVEF 55-60 %. Technically limited study, cannot rule out regional motion abnormalities. * 3. Normal RV size and function. * 4. Mild aortic sclerosis without significant stenosis * 5. Grade 1 diastolic dysfunction * 6. Compared with prior study on 03/06/2015: No significant change for her Acute bronchitis/UTI continued on guaifenesin initially started on levofloxacin but when urine Cx came back resistant she was switched to Imipenem also had incentive spirometry and Chest PT Urine Cx growing E coli ESBL switched levofloxacin imipenem, which upon discharge changed to Ertapenem X 7 more days S/P midline, 07/23 continued on xarelto for Afib she was felt today to be within acceptable stability for discharge back to [place] Total Time Spent: Greater than 30 minutes This includes examination of the patient, discharge planning, medication reconciliation, and communication with other providers. Discharge Instructions Please refer to the electronic Patient Visit Report (Discharge Instructions) for additional information.
== END 2016-07-24 16:30 | DRG 291 ==
LOC: ENRESERVDT → ENRESERVTM → EDBD 14:05 → C.EDB 14:06 → C.2T 15:59 → C.MS4W 07-21 16:35
PROVIDERS: ADMIT Hospitalist; ATTEND Internal Medicine
DX: I50.33 Acute on chronic diastolic (congestive) heart failure (principal); J96.01 Acute respiratory failure with hypoxia; G93.41 Metabolic encephalopathy; E11.641 Type 2 diabetes mellitus with hypoglycemia with coma; E66.2 Morbid (severe) obesity with alveolar hypoventilation; N39.0 Urinary tract infection, site not specified; N17.9 Acute kidney failure, unspecified; L10.9 Pemphigus, unspecified; J40 Bronchitis, not specified as acute or chronic; B96.20 Unspecified Escherichia coli [E. coli] as the cause of diseases classified elsewhere; G20 Parkinson's disease; N18.3 Chronic kidney disease, stage 3 (moderate); I48.91 Unspecified atrial fibrillation; D50.9 Iron deficiency anemia, unspecified; E11.22 Type 2 diabetes mellitus with diabetic chronic kidney disease; R19.00 Intra-abdominal and pelvic swelling, mass and lump, unspecified site; Z79.01 Long term (current) use of anticoagulants; Z79.52 Long term (current) use of systemic steroids; Z79.899 Other long term (current) drug therapy; Z68.30 Body mass index [BMI] 30.0-30.9, adult

== ENCOUNTER → 2016-08-05 | Outpatient (CLI) | payer OTHER ==
[~2016-08-05] MED LIST changes: -CLC100 PO; +DEXT40GE PO; +ERYOPO OPB; +ESTCR PV; +FLUT0.15 NEB; -FORM1NEB PO; +GLGKIT IM; +HYDR5SYP11 PO; +LCTXP PO; +MEGE40SU PO; -NF406 PO; +SENN-65 PO
[2016-08-05 08:59] LABS: HEMATOCRIT 35.1 % (37-47); MEAN CELL VOLUME 92.9 fL (80-100); MEAN CORPUSCULAR HEMOGLOBIN 28.6 pg (25-34); MEAN CORPUSCULAR HGB CONC 30.8 g/dl (32-36); MEAN PLATELET VOLUME 11.6 fL (7.4-10.4); PLATELET COUNT 195 K/uL (130-400); RED BLOOD COUNT 3.78 M/uL (4.2-5.4); WHITE BLOOD COUNT 8.36 K/uL (4.8-10.8)
[2016-08-05 09:09] LABS: ALT/SGPT 12 U/L (12-78); BLOOD UREA NITROGEN 25 mg/dl (7-18); BUN/CREATININE RATIO 17.6 (10-20); CARBON DIOXIDE 26 mmol/L (21-32); CHLORIDE 110 mmol/L (98-107); GLUCOSE 80 mg/dl (70-99); POTASSIUM 4.7 mmol/L (3.5-5.1); SODIUM 144 mmol/L (136-145)
[2016-08-05 09:11] LABS: ALB/GLOB RATIO 0.6 (0.9-2); ALKALINE PHOSPHATASE 78 U/L (45-117); AST/SGOT 13 U/L (15-37)
== END ==
LOC: C.LABUPUNI 08:49
PROVIDERS: ATTEND Family Medicine
DX: J80 Acute respiratory distress syndrome (principal); E11.641 Type 2 diabetes mellitus with hypoglycemia with coma

== ENCOUNTER → 2016-08-06 | Outpatient (CLI) | payer OTHER ==
[2016-08-06 07:40] LABS: BLOOD UREA NITROGEN 31 mg/dl (7-18); BUN/CREATININE RATIO 25.4 (10-20); CALCIUM 8.6 mg/dl (8.5-10.1); CARBON DIOXIDE 26 mmol/L (21-32); CHLORIDE 112 mmol/L (98-107); GLUCOSE 99 mg/dl (70-99); POTASSIUM 4.2 mmol/L (3.5-5.1); SODIUM 146 mmol/L (136-145)
== END ==
LOC: C.LABUPUNI 10:12
PROVIDERS: ATTEND Family Medicine
DX: M62.81 Muscle weakness (generalized) (principal)

== ENCOUNTER → 2016-08-08 | Outpatient (CLI) | payer OTHER ==
[2016-08-08 09:02] LABS: BLOOD UREA NITROGEN 28 mg/dl (7-18); BUN/CREATININE RATIO 28.5 (10-20); CALCIUM 8.6 mg/dl (8.5-10.1); CARBON DIOXIDE 27 mmol/L (21-32); CHLORIDE 112 mmol/L (98-107); CREATININE 0.97 mg/dl (0.60-1.20); GLUCOSE 104 mg/dl (70-99); POTASSIUM 4.3 mmol/L (3.5-5.1); SODIUM 147 mmol/L (136-145)
== END ==
LOC: C.LABUPUNI 08:33
PROVIDERS: ATTEND Family Medicine
DX: I50.9 Heart failure, unspecified (principal)

== ENCOUNTER → 2016-08-12 | Outpatient (CLI) | payer OTHER ==
[2016-08-12 09:32] LABS: BLOOD UREA NITROGEN 22 mg/dl (7-18); BUN/CREATININE RATIO 20.3 (10-20); CALCIUM 8.3 mg/dl (8.5-10.1); CARBON DIOXIDE 25 mmol/L (21-32); CHLORIDE 110 mmol/L (98-107); GLUCOSE 124 mg/dl (70-99); POTASSIUM 4.1 mmol/L (3.5-5.1); SODIUM 144 mmol/L (136-145)
== END ==
LOC: C.LABUPUNI 08:59
PROVIDERS: ATTEND Family Medicine
DX: M62.81 Muscle weakness (generalized) (principal)

== ENCOUNTER → 2016-08-30 | Outpatient (CLI) | payer OTHER ==
[~2016-08-30] MED LIST changes: -SENN-65 PO
[2016-08-30 10:41] LABS: BLOOD UREA NITROGEN 24 mg/dl (7-18); BUN/CREATININE RATIO 24.2 (10-20); CALCIUM 8.9 mg/dl (8.5-10.1); CARBON DIOXIDE 26 mmol/L (21-32); CHLORIDE 109 mmol/L (98-107); CREATININE 0.97 mg/dl (0.60-1.20); GLUCOSE 101 mg/dl (70-99); SODIUM 144 mmol/L (136-145)
== END ==
LOC: C.LABUPUNI 09:55
PROVIDERS: ATTEND Family Medicine
DX: L89.150 Pressure ulcer of sacral region, unstageable (principal); J15.9 Unspecified bacterial pneumonia

== ENCOUNTER → 2016-09-01 | Outpatient (CLI) | payer OTHER ==
[2016-09-01 09:18] LABS: BLOOD UREA NITROGEN 17 mg/dl (7-18); BUN/CREATININE RATIO 21.6 (10-20); CARBON DIOXIDE 23 mmol/L (21-32); CHLORIDE 108 mmol/L (98-107); CREATININE 0.79 mg/dl (0.60-1.20); GLUCOSE 68 mg/dl (70-99); POTASSIUM 4.6 mmol/L (3.5-5.1); SODIUM 141 mmol/L (136-145)
== END ==
LOC: C.LABUPUNI 09:04
PROVIDERS: ATTEND Family Medicine
DX: E11.641 Type 2 diabetes mellitus with hypoglycemia with coma (principal); J96.91 Respiratory failure, unspecified with hypoxia